=== PATIENT | male | born 1970 | race Caucasian/White ===

== ENCOUNTER 2016-04-06 19:34 | Emergency (ER) | payer OTHER ==
[~2016-04-06] VITALS: Ht 175.3 cm; Wt 81.6 kg
--- OUTSIDE RECORDS SUMMARY | 2016-04-06 19:41 | XMS REPORT | Continuity of Care Document ---
Demographics Preferred Language Unknown Marital Status Unknown [employer] Affiliation Unknown Race Unknown Ethnic Group Unknown Author Author [facility] Organization [facility] Address Unknown Phone Unavailable Allergies Medications Problems Procedures Results Encounters ACCT No. Visit Date/Time Discharge Status Pt. Type Provider Facility Loc./Unit Complaint [id number] 03/13/2014 15:44:00 2014 23:59:59 [facility] Outpatient AKILA MAO APRN [facility] QUICK
[2016-04-06] MEDS ORDERED: ORPHENADRINE 60 MG/2 ML (NORFLEX) AMP ONE (20:27)
[2016-04-06] MEDS ORDERED: KETOROLAC 60 MG/2 ML VIAL IM ONE ×2 (20:27→20:30)
[2016-04-06] MEDS ORDERED: ORPHENADRINE 60 MG/2 ML (NORFLEX) AMP IM ONE (20:30)
--- NOTE | 2016-04-06 20:30 | ED Back Pain ---
General Chief Complaint: Back Problems Stated Complaint: LOWER BACK Nursing Triage Note: to ER with complaints of lower back pain after sitting in bleachers all day watching wrestling. Patient reports that his back was sore after that and they went and ate in [place] and then went and had a massage at the mall, and patient reports that his pain was significantly worse after the massage. Nursing Sepsis Screen: No Definite Risk Source of Information: Patient Exam Limitations: No Limitations History of Present Illness Time Seen by Provider: 20:27 Initial Comments To ER with midline low back pain that began earlier today. He was at his cousin 's wrestling tournament in [facility] sitting on the bench all day. They got up and went to eat in [place]. After they set up from eating dinner he noticed some midline back pain that did not radiate. They then went to the mall and the back pain continued so he stopped by a massage kiosk and had a massage. He states some/felt good but ultimately did not help with his back pain. Still, the back pain does not radiate but is persistent in the midline low back. He denies any falls injuries or any other known cause. He denies fevers or chills or history of cancer. Pain does not radiate and there is no loss of bowel or bladder control or loss of sensation of the genitals. He has 1 episode of back pain in the remote past about 7 months ago for which she saw Dr. alcantar, got a few shots and ultimately felt better 1-2 days later. Location: Lumbar Spine, Paraspinous Muscles Timing/Duration: 4-6 Hours Severity: Moderate Pain/Injury Location: Back Method of Injury: Unknown Allergies and Home Medications Allergies Coded Allergies: No Known Drug Allergies (Unverified , 04/06/16) Constitutional: see HPINo chills, No fever EENTM: see HPI Respiratory: no symptoms reported Cardiovascular: no symptoms reported Genitourinary: no symptoms reported Musculoskeletal: see HPI back pain Skin: no symptoms reported Psychiatric/Neurological: No Symptoms Reported Past Dxqhnwz-Kknuca-Rfdvzu Hx Patient Social History Alcohol Use: Occasionally Uses Recreational Drug Use: No Smoking Status: Never a Smoker 2nd Hand Smoke Exposure: No Recent Foreign Travel: No Contact w/Someone Who Travel: No Recent Infectious Disease Expo: No Recent Hopitalizations: No Immunizations Up To Date Tetanus Booster (TDap): Unknown Seasonal Allergies Seasonal Allergies: No Surgeries HX Surgeries: Yes Surgeries: Orthopedic Respiratory Hx Respiratory Disorders: No Cardiovascular Hx Cardiac Disorders: No Neurological Hx Neurological Disorders: No Reproductive System Hx Reproductive Disorders: No Genitourinary Hx Genitourinary Disorders: No Gastrointestinal Hx Gastrointestinal Disorders: No Musculoskeletal Hx Musculoskeletal Disorders: No Endocrine Hx Endocrine Disorders: No HEENT HX ENT Disorders: No Cancer Hx Cancer: No Psychosocial Hx Psychiatric Problems: No Integumentary HX Skin/Integumentary Disorder: No Blood Transfusions Hx Blood Disorders: No Physical Exam Vital Signs Vital Sign - Last 12Hours 04/06/16 20:18 Temp 98.7 Pulse 72 Resp 18 B/P 157/95 Pulse Ox 100 O2 Delivery Room Air Capillary Refill : Less Than 3 Seconds General Appearance: No Apparent Distress WD/WN HEENT: PERRL/EOMI TMs Normal Neck: Full Range of Motion Normal Inspection Respiratory: No Accessory Muscle Use No Respiratory Distress Gastrointestinal: Normal Bowel Sounds Non Tender Soft Back: Normal Inspection Muscle SpasmNo Vertebral Tenderness Extremity: Normal Capillary Refill Normal Inspection Neurologic/Psychiatric: Alert Oriented x3 No Motor/Sensory Deficits Skin: Normal Color Warm/Dry Progress/Results/Core Measures Results/Orders My Orders Orders-NAVARRO WHEATLEY APRN Orphenadrine Injection (Norflex Injectio (04/06/16 20:30) Ketorolac Injection (Toradol Injection) (04/06/16 20:30) Ketorolac Injection (Toradol Injection) (04/06/16 20:27) Orphenadrine Injection (Norflex Injectio (04/06/16 20:27) Medications Given in ED Current Medications Medications Dose Ordered Sig/Jefry Route Start Time Stop Time Status Last Admin Dose Admin Ketorolac Tromethamine 60 mg ONCE ONCE IM 04/06/16 20:30 04/06/16 20:31 DC 04/06/16 20:40 60 MG Orphenadrine Citrate 60 mg ONCE ONCE IM 04/06/16 20:30 04/06/16 20:31 DC 04/06/16 20:39 60 MG Vital Signs/I&O Vital Sign - Last 12Hours 04/06/16 04/06/16 04/06/16 04/06/16 20:18 20:39 20:40 20:40 Temp 98.7 98.7 98.7 98.7 Pulse 72 Resp 18 B/P 157/95 Pulse Ox 100 O2 Delivery Room Air Blood Pressure Mean: 115 Departure Communication Progress Notes 2116-minimal improvement in pain after Toradol and Norflex. 8 mg of intramuscular morphine ordered. Impression Impression: Primary Impression: Acute low back pain Qualified Code: M54.5 - Low back pain Disposition: HOME, SELF-CARE Condition: Stable Departure-Patient Inst. Decision time for Depature: 20:29 Referrals: NO,LOCAL PHYSICIAN (PCP) Primary Care Physician Patient Instructions: Lumbar Muscle Strain (DC), Low Back Pain (DC) Add. Discharge Instructions: 1. Return to ER for any worsening 2. Follow-up your doctor next week 3. All discharge instructions reviewed with patient and/or family. Voiced understanding. Scripts Oxycodone HCl/Acetaminophen (Percocet 5-325 mg Tablet)1 Each Tablet1 Each PO Q6H PRN SEVERE PAIN #10 TAB Prov:NAVARRO WHEATLEY APRN 04/06/16 Prednisone 20 Mg Tab40 Mg PO DAILY #8 TAB Prov:NAVARRO WHEATLEY APRN 04/06/16 NAVARRO WHEATLEY APRN Apr 06, 2016 20:30
[2016-04-06] MEDS ORDERED: OXYC-197 PO (21:18)
[2016-04-06] MEDS ORDERED: PRD20T PO (21:18)
[2016-04-06] MEDS ORDERED: morphine INJ 10 MG/ML 1ML (SYR OR VIAL) IM ONE (21:30)
[2016-04-06] MEDS ORDERED: RX-TRAMADOL 50 MG (ULTRAM) TAB PPK#4 PO STA (21:35)
[2016-04-06 21:52] VITALS: BP 157/95
[2016-04-07] MEDS ORDERED: CYCL10TA9 PO (16:07)
== END 2016-04-06 21:52 | disposition home or self-care (01) ==
LOC: EDUNIT# 19:34 → ER 19:38
DX: M54.5 Low back pain (principal)
CPT/HCPCS: 96372; 99281

== ENCOUNTER 2016-04-07 13:52 | Emergency (ER) | payer OTHER ==
[~2016-04-07] VITALS: Ht 175.3 cm; Wt 81.6 kg
[~2016-04-07 13:52] MED LIST: OXYC-197 PO; PRD20T PO
--- OUTSIDE RECORDS SUMMARY | 2016-04-07 13:58 | XMS REPORT | Continuity of Care Document ---
Author Author [facility] Organization [facility] Address Unknown Phone Unavailable Care Team Providers Care Figure Clerk Name Role Phone NO, LOCAL PHYSICIAN PCP Unavailable Insurance Providers Payer Name Policy Number Subscriber Name Relationship Unknown Advance Directives Directive Response Recorded Date/Time Advance Directives No 04/06/16 8:18pm Resuscitation Status Full Code 04/06/16 8:18pm Chief Complaint and Reason for Visit Chief Complaint Back Problems Reason for Visit Acute low back pain Problems Active Problems Medical Problem Onset Date Status Acute low back pain Unknown Acute Medications Current Home Medications Medication Dose Units Route Directions Days/Qty Instructions Start Date Prednisone 20 Mg 40 Mg Oral Daily 8 04/06/16 Oxycodone Hcl/Acetaminophen 1 Each 1 Each Oral Every 6 Hours as needed for Severe Pain 10 04/06/16 Social History Social History Problem Response Recorded Date/Time Alcohol Use Occasionally Uses 04/06/2016 8:18pm Recreational Drug Use No 04/06/2016 8:18pm Recent Foreign Travel No 04/06/2016 8:18pm Recent Infectious Disease Exposure No 04/06/2016 8:18pm Hospitalization with Isolation Denies 04/06/2016 8:18pm Smoking Status Never a Smoker 04/06/2016 8:18pm Recent Hopitalizations No 04/06/2016 8:18pm Hospitalization with Isolation Denies 04/06/2016 8:18pm Query Response Start Date Stop Date Smoking Status Never a Smoker Hospital Discharge Instructions No hospital discharge instructions. Plan of Care Discharge Date 04/06/16 9:52pm Disposition 01 HOME, SELF-CARE Condition at Discharge Stable Instructions/Education Provided Low Back Pain (DC) Lumbar Muscle Strain (DC) Prescriptions See Medication Section Referrals NO,LOCAL PHYSICIAN - Primary Care Physician Additional Instructions/Education 1. Return to ER for any worsening 2. Follow-up your doctor next week 3. All discharge instructions reviewed with patient and/or family. Voiced understanding. Functional Status No functional status results. Allergies, Adverse Reactions, Alerts No known allergies. Immunizations No immunization records. Vital Signs Acute Vital Signs Vital Response Date/Time Temperature (Fahrenheit) 98.7 degrees F (97.6 - 99.5) 04/06/2016 9:25pm Temperature (Calculated Celsius) 37.31241 degrees C (36.4 - 37.5) 04/06/2016 9:25pm Temperature Source Temporal 04/06/2016 9:25pm Pulse Rate (adult) 72 bpm (60 - 90) 04/06/2016 8:18pm Respiratory Rate 18 bpm (12 - 24) 04/06/2016 8:18pm O2 Sat by Pulse Oximetry 100 % (88 - 100) 04/06/2016 8:18pm Blood Pressure 157/95 mm Hg 04/06/2016 8:18pm Blood Pressure Mean 115 mm Hg 04/06/2016 8:18pm Pain Numeric Pain Scale 10-Worst Possible Pain 04/06/2016 9:25pm Height (Feet) 5 feet 04/06/2016 8:18pm Height (Inches) 9 inches 04/06/2016 8:18pm Height (Calculated Centimeters) 175.686696 cm 04/06/2016 8:18pm Weight (Pounds) 180 pounds 04/06/2016 8:18pm Weight (Calculated Kilograms) 81.662571 kilograms 04/06/2016 8:18pm Capillary Refill Capillary Refill Less Than 3 Seconds 04/06/2016 8:18pm Height 5 ft 9 in Weight 180 lb Body Mass Index 26.6 kg/m^2 Results No known relevant diagnostic tests, laboratory data and/or discharge summary. Procedures No known history of procedures. Encounters Encounter Location Arrival/Admit Date Discharge/Depart Date Attending Provider Departed Emergency Room [facility] 04/06/16 7:38pm 04/06 9:52pm NAVARRO WHEATLEY APRN Recent Diagnosis
--- NOTE | 2016-04-07 14:34 | ED Back Pain ---
General Chief Complaint: Back Problems Stated Complaint: LOWER BACK PAIN Nursing Triage Note: PT STATES CONTINUED BACK PAIN, WAS SEEN HERE YESTERDAY FOR THE SAME. HAD A SHOT IN HIS BACK ABOUT 6-7 MONTHS AGO FOR PAIN. Nursing Sepsis Screen: No Definite Risk Source of Information: Patient, Spouse Exam Limitations: No Limitations History of Present Illness Time Seen by Provider: 14:33 Initial Comments 45-year-old male patient presents to the emergency department complaints of low back pain. Patient was seen in the emergency department yesterday by Scot Thakur APRN for similar complaints. Patient states he is feeling much better last night. 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 On the way to get his prescriptions he decided he was stopping at the emergency department instead for an injection of pain medicine. Denies bowel or bladder incontinence. Patient does complain of right flank pain radiating into the right testicle. Location: Lumbar Spine Timing/Duration: 1-2 Days Pain/Injury Location: Back Radiation: Other (right testicle) Method of Injury: Unknown (denies known injury) Modifying Factors: Worse With Immobilization, Improves With Movement, Improves With Other (improved with standing) Associated Symptoms: muscle spasmsNo fever, No weakness, No numbness in legs/ feet, No tingling in legs/feet, No sensory/motor loss, lower back painNo loss of bladder control, No loss of bowel control Allergies and Home Medications Allergies Coded Allergies: No Known Drug Allergies (Unverified , 04/06/16) Home Medications Cyclobenzaprine HCl 10 Mg Tablet #14 10 MG PO Q8H PRN PRN SPASMS Prescribed by: DIMITRIS NATION on 04/07/16 1607 Oxycodone HCl/Acetaminophen 1 Each Tablet #10 1 EACH PO Q6H PRN PRN SEVERE PAIN Prescribed by: SCOT THAKUR on 04/06/162117 Prednisone 20 Mg Tab #8 40 MG PO DAILY Prescribed by: SCOT THAKUR on 04/06/162117 Constitutional: No chills, No diaphoresis, No fever, No malaise EENTM: no symptoms reported Respiratory: no symptoms reported Cardiovascular: no symptoms reported Gastrointestinal: No abdominal pain, No constipation, No diarrhea, No nausea, No vomiting Genitourinary: see HPINo decreased output, No dysuria, No frequency, No hematuria, pain Musculoskeletal: see HPI back pain Skin: no symptoms reported Psychiatric/Neurological: No Symptoms Reported All Other Systems Reviewed Negative Unless Noted: Yes (Negative excepted noted.) Past Sznvzlh-Orpsbg-Ofrzir Hx Patient Social History Alcohol Use: Rarely Uses Recreational Drug Use: No Smoking Status: Never a Smoker 2nd Hand Smoke Exposure: No Recent Foreign Travel: No Contact w/Someone Who Travel: No Recent Infectious Disease Expo: No Recent Hopitalizations: No Immunizations Up To Date Tetanus Booster (TDap): Unknown Seasonal Allergies Seasonal Allergies: No Surgeries HX Surgeries: Yes (RT ROTATOR CUFF) Surgeries: Orthopedic Respiratory Hx Respiratory Disorders: No Cardiovascular Hx Cardiac Disorders: No Neurological Hx Neurological Disorders: No Reproductive System Hx Reproductive Disorders: No Genitourinary Hx Genitourinary Disorders: No Gastrointestinal Hx Gastrointestinal Disorders: No Musculoskeletal Hx Musculoskeletal Disorders: No Endocrine Hx Endocrine Disorders: No HEENT HX ENT Disorders: No Cancer Hx Cancer: No Psychosocial Hx Psychiatric Problems: No Integumentary HX Skin/Integumentary Disorder: No Blood Transfusions Hx Blood Disorders: No Reviewed Nursing Assessment Reviewed/Agree w Nursing PMH: Yes Family Medical History Significant Family History: No Pertinent Family Hx Physical Exam Vital Signs Vital Sign - Last 12Hours 04/07/16 14:08 Temp 99.7 Pulse 75 Resp 22 B/P 152/93 Pulse Ox 99 O2 Delivery Room Air Capillary Refill : Less Than 3 Seconds General Appearance: No Apparent Distress WD/WN Neck: Normal Inspection Supple Cardiovascular: Regular Rate, Rhythm No Edema No Murmur Normal Peripheral Pulses Respiratory: Lungs Clear Normal Breath Sounds No Respiratory Distress Gastrointestinal: Normal Bowel Sounds No Organomegaly Non Tender SoftNo Distended Back: Normal Inspection No Vertebral TendernessNo CVA Tenderness (L), CVA Tenderness (R) Decreased Range of Motion Muscle Spasm Extremity: Normal Capillary Refill Normal Inspection Normal Range of Motion Non Tender No Pedal Edema Neurologic/Psychiatric: Alert Oriented x3 No Motor/Sensory Deficits Normal Mood/Affect Skin: Normal Color Warm/Dry Progress/Results/Core Measures Results/Orders Lab Results Laboratory Tests Test 04/07/16 14:55 Range/Units Urine Bacteria NONE /HPF Urine Bilirubin NEGATIVE NEGATIVE Urine Casts NONE /LPF Urine Clarity CLEAR Urine Color YELLOW Urine Crystals NONE /LPF Urine Culture Indicated NO Urine Glucose (UA) NEGATIVE NEGATIVE Urine Ketones NEGATIVE NEGATIVE Urine Leukocyte Esterase NEGATIVE NEGATIVE Urine Mucus NEGATIVE /LPF Urine Nitrite NEGATIVE NEGATIVE Urine Protein NEGATIVE NEGATIVE Urine RBC NONE /HPF Urine RBC (Auto) NEGATIVE NEGATIVE Urine Specific Nelson 1.020 1.016-1.022 Urine Squamous Epithelial Cells RARE /HPF Urine Urobilinogen NORMAL NORMAL MG/DL Urine WBC NONE /HPF Urine pH 6 5-9 My Orders Orders-DIMITRIS NATION Ua Culture If Indicated (04/07/16 14:47) Morphine Injection (Morphine Injection (04/07/16 14:47) Orphenadrine Injection (Norflex Injectio (04/07/16 14:47) Ct Abd/Pelvis Wo(Kidney Stone) (04/07/16 14:47) Ct Lumbar Spine Wo (04/07/16 14:47) Vital Signs/I&O Vital Sign - Last 12Hours 04/07/16 04/07/16 14:08 16:19 Temp 99.7 97.1 Pulse 75 75 Resp 22 22 B/P 152/93 Pulse Ox 99 99 O2 Delivery Room Air Blood Pressure Mean: 112 Diagnostic Imaging Diagonstic Imaging: CT Plain Films/CT/US/NM/MRI: other (lumbar spine) Comments IMPRESSION: 1. There is no evidence for an acute bony abnormality. 2. There is trefoil stenosis at L4-L5 and there is narrowing of the neuroforamen bilaterally at this level, particularly on the right. There is also mild trefoil stenosis at L3-L4 with mild narrowing of the neuroforamen bilaterally. 3. The remainder of the lumbar spine is unremarkable for spinal stenosis or nerve root encroachment. Dictated by: Dictated on workstation # [id number] Diagonstic Imaging: CT Plain Films/CT/US/NM/MRI: abdomen, pelvis Comments FINDINGS: The lung bases are clear. The liver, gallbladder, pancreas, spleen and adrenal glands appear unremarkable. There is a tiny nonobstructive calculus in the mid left kidney. The kidneys, ureters and bladder otherwise appear unremarkable. The appendix appears normal. There is no evidence of diverticulitis. There is no free fluid or adenopathy. The abdominal aorta appears normal in caliber. No acute osseous abnormality is suspected. IMPRESSION : 1. Nonobstructive left nephrolithiasis. 2. No additional significant abnormality is demonstrated. Dictated by: Dictated on workstation # [id number] Reviewed: Reviewed by Me (radiology report reviewed by me) Departure Communication Progress Notes Diagnostic and laboratory findings discussed with the patient. Patient reports symptoms are much improved with IM morphine and Norflex. Patient is ambulating without difficulty. Plan for discharge to home. All return precautions were discussed with the patient as described in the discharge instructions of this report. Patient voices understanding and agrees with the treatment plan. Patient case discussed with Dr. Trevino, he agrees with the plan of care. Impression Impression: Primary Impression: Spinal stenosis, lumbar Disposition: HOME, SELF-CARE Condition: Improved Departure-Patient Inst. Decision time for Depature: 16:02 Referrals: OBI MOYER BRIAN J MD NO,LOCAL PHYSICIAN (PCP) Primary Care Physician Patient Instructions: Spinal Stenosis (DC), Spinal Stenosis Strengthening Exercises, Spinal Stenosis Stretching Exercises Add. Discharge Instructions: All discharge instructions reviewed with patient and/or family. Voiced understanding. quality assurance group leader medications as prescribed by Scot Thakur APRN. medications as instructed. Ibuprofen 800 mg by mouth every 8 hours as needed for pain. No lifting, pushing, pulling, twisting, bending, climbing 7 days. Heating pads or packs as needed for pain. Follow-up with a family practitioner for recheck. Return to the emergency department for worsened pain, radiating pain, numbness, weakness, bowel incontinence, bladder incontinence, or any other concerns. 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
[2016-04-07] MEDS ORDERED: morphine INJ 10 MG/ML 1ML (SYR OR VIAL) IM STA (14:47)
[2016-04-07] MEDS ORDERED: ORPHENADRINE 60 MG/2 ML (NORFLEX) AMP IM STA (14:47)
[2016-04-07 15:01] LABS: BILIRUBIN,URINE NEGATIVE (NEGATIVE); KETONES,URINE NEGATIVE (NEGATIVE); LEUKOCYTE ESTERASE ,URINE NEGATIVE (NEGATIVE); NITRITE,URINE NEGATIVE (NEGATIVE); PH,URINE 6 (5-9); PROTEIN,URINE NEGATIVE (NEGATIVE); UROBILINOGEN,URINE NORMAL (NORMAL)
[2016-04-07 15:08] LABS: SQUAMOUS EPITHELIAL CELL,UR RARE /HPF
--- NOTE | 2016-04-07 15:36 | Diagnostic Imaging Report ---
PROCEDURE: CT urinary tract, rule out kidney stone. TECHNIQUE: Multiple contiguous axial images were obtained through the abdomen and pelvis without the use of intravenous contrast. INDICATION: Low back pain. COMPARISON: None. FINDINGS: The lung bases are clear. The liver, gallbladder, pancreas, spleen and adrenal glands appear unremarkable. There is a tiny nonobstructive calculus in the mid left kidney. The kidneys, ureters and bladder otherwise appear unremarkable. The appendix appears normal. There is no evidence of diverticulitis. There is no free fluid or adenopathy. The abdominal aorta appears normal in caliber. No acute osseous abnormality is suspected. IMPRESSION: 1. Nonobstructive left nephrolithiasis. 2. No additional significant abnormality is demonstrated. Dictated by: Dictated on workstation # [id number]
--- NOTE | 2016-04-07 15:56 | Diagnostic Imaging Report ---
PROCEDURE: CT lumbar spine without contrast. TECHNIQUE: Multiple contiguous axial images were obtained through the lumbar spine without the use of intravenous contrast. Sagittal and coronal reformations were then performed. INDICATION: Back pain. There are no prior studies available for comparison. FINDINGS: The reconstructed parasagittal images show the vertebral body heights and alignment to be generally within normal limits. There is mild narrowing of the disc spaces at L3-L4 and L4-L5. There does appear to be trefoil stenosis at the L4-L5 level and there is narrowing of the neuroforamen bilaterally, particularly on the right. There is mild trefoil stenosis at L3-L4. There is mild narrowing of the neuroforamen bilaterally at this level as well. The remainder of the lumbar spine is unremarkable for spinal stenosis or nerve root encroachment. There is no fracture or acute bony abnormality identified. There is no sign of a paraspinal mass. IMPRESSION: 1. There is no evidence for an acute bony abnormality. 2. There is trefoil stenosis at L4-L5 and there is narrowing of the neuroforamen bilaterally at this level, particularly on the right. There is also mild trefoil stenosis at L3-L4 with mild narrowing of the neuroforamen bilaterally. 3. The remainder of the lumbar spine is unremarkable for spinal stenosis or nerve root encroachment. Dictated by: Dictated on workstation # [id number]
[2016-04-07] MEDS ORDERED: CYCL10TA9 PO (16:07)
[2016-04-07 16:19] VITALS: BP 132/84
== END 2016-04-07 16:18 | disposition home or self-care (01) ==
LOC: EDUNIT# 13:52 → ER 13:55
DX: M48.06 Spinal stenosis, lumbar region (principal); N20.0 Calculus of kidney
CPT/HCPCS: 72131; 74176; 81000; 96372; 99282

== ENCOUNTER 2022-10-07 15:27 | Emergency (ER) | payer BC ==
[~2022-10-07] VITALS: Ht 172 cm; Wt 131.0 kg
[~2022-10-07 15:27] MED LIST changes: +CYCL10TA25 PO; -OXYC-197 PO; +OXYC1TAB87 PO
[2022-10-07 16:01] LABS: BILIRUBIN,URINE NEGATIVE (NEGATIVE); CLARITY,URINE CLEAR; COLOR,URINE YELLOW; GLUCOSE, URINE (UA) NEGATIVE (NEGATIVE); KETONES,URINE NEGATIVE (NEGATIVE); LEUKOCYTE ESTERASE ,URINE NEGATIVE (NEGATIVE); NITRITE,URINE NEGATIVE (NEGATIVE); PH,URINE 6.5 (5-9); PROTEIN,URINE NEGATIVE (NEGATIVE)
[2022-10-07 16:02] LABS: BACTERIA,URINE NEGATIVE /HPF; SQUAMOUS EPITHELIAL CELL,UR 0-2 /HPF
[2022-10-07] MEDS ORDERED: ASPIRIN 81 MG CHEWABLE TABLET PO ONE (16:15)
[2022-10-07 16:22] LABS: BASOPHILS % (AUTO) 0 % (0-10); EOSINOPHILS # (AUTO) 0.1 10^3/uL (0.0-0.3); EOSINOPHILS % (AUTO) 1 % (0-10); HEMATOCRIT 38 % (40-54); HEMOGLOBIN 11.5 g/dL (13.3-17.7); LYMPHOCYTES # (AUTO) 1.5 10^3/uL (1.0-4.0); LYMPHOCYTES % (AUTO) 10 % (12-44); MEAN CORPUSCULAR HEMOGLOBIN 27 pg (25-34); MEAN CORPUSCULAR HGB CONC 30 g/dL (32-36); MEAN CORPUSCULAR VOLUME 88 fL (80-99); MONOCYTES # (AUTO) 1.5 10^3/uL (0.0-1.0); MONOCYTES % (AUTO) 11 % (0-12); NEUTROPHILS # (AUTO) 10.8 10^3/uL (1.8-7.8); NEUTROPHILS % (AUTO) 78 % (42-75); PLATELET COUNT 309 10^3/uL (130-400); WHITE BLOOD COUNT 13.9 10^3/uL (4.3-11.0)
[2022-10-07 16:32] LABS: ALBUMIN 3.3 GM/DL (3.2-4.5)
[2022-10-07 16:33] LABS: CHLORIDE 101 MMOL/L (98-107); POTASSIUM 3.8 MMOL/L (3.6-5.0); SODIUM 133 MMOL/L (135-145)
[2022-10-07 16:34] LABS: CALCIUM 8.4 MG/DL (8.5-10.1)
[2022-10-07 16:35] LABS: GLUCOSE 131 MG/DL (70-105); TOTAL PROTEIN 6.3 GM/DL (6.4-8.2)
[2022-10-07 16:36] LABS: CARBON DIOXIDE 22 MMOL/L (21-32)
[2022-10-07 16:38] LABS: ALKALINE PHOSPHATASE 77 U/L (40-136)
[2022-10-07 16:39] LABS: GFR ESTIMATED 108
[2022-10-07 16:40] LABS: BUN/CREATININE RATIO 15
[2022-10-07 16:42] LABS: ALANINE AMINOTRANSFERASE 30 U/L (0-55)
--- NOTE | 2022-10-07 16:48 | Diagnostic Imaging Report ---
INDICATION: Abdominal pain, dysuria. EXAMINATION: PA chest, supine and upright abdominal images are obtained. FINDINGS: There is some atelectasis at the lung bases. There is scoliosis of the lumbar spine convex to the right. Bowel gas pattern is normal. There are no pathologic masses or calcifications seen. IMPRESSION: No acute abnormalities in the abdomen. Dictated by: Dictated on workstation # [id number]
--- NOTE | 2022-10-07 16:52 | ED GU-Female ---
General Chief Complaint: - Reproductive Stated Complaint: UNABLE TO URINATE Nursing Triage Note: PT AMB TO RM 8 PT CO OF PAIN 8/10 UPON URINATION. STARTED A COUPLE DAYS AGO. PT STATES DR HAS INCREASED PREDNISONE AND IS WONDERING IF THIS WOULD CAUSE PROBLEM. PT STATES SOMETIME HE DRIBBLES. BLADDER SCANNER USED AND PT HAS APPROX 195CC OF URINE IN BLADDER AFTER VOIDING HAS ONLY 6CC LEFT IN BLADDER. Source: patient Exam Limitations: no limitations History of Present Illness Date Seen by Provider: Oct 07, 2022 Time Seen by Provider: 15:43 Initial Comments Here with report of difficulty with urination over the past couple of days after starting high-dose prednisone taper for rheumatoid arthritis. States that he has to urinate a lot and then cannot very much and then only dribbles but still feels the urge to urinate. He is also complaining of constipation and then reports upper abdominal pressure and low chest pressure. Patient is obese and denies diabetes or other medical problems. Does have family history of melanoma and lymphoma in both his father and brother. Denies fever or chills. Denies chest pain or breathing problems otherwise other than the chest pressure described above. Denies upper respiratory symptoms. Timing/Duration: other (Few days ago) Severity/Quality: mild, burning Location: urethral Radiation: RLQ, LLQ, suprapubic Modifying Factors: Worsens With Urinating Associated Symptoms: abdominal pain, dysuria; No fever/chills, No nausea/vomiting; urinary frequency, other (low Chest pressure anterior) Allergies and Home Medications Allergies Coded Allergies: No Known Drug Allergies (Unverified , 04/06/16) Patient Home Medication List Home Medication List Reviewed: Yes Cyclobenzaprine HCl (Cyclobenzaprine HCl) 10 Mg Tablet, 10 MG PO Q8H PRN for SPASMS Prescribed by: DIMITRIS NATION on 04/07/16 1607 Oxycodone HCl/Acetaminophen (Percocet 5-325 mg Tablet) 1 Each Tablet, 1 EACH PO Q6H PRN for SEVERE PAIN Prescribed by: NAVARRO WHEATLEY on 04/06/162117 Prednisone (Prednisone) 20 Mg Tab, 40 MG PO DAILY Prescribed by: NAVARRO WHEATLEY on 04/06/162117 Review of Systems Review of Systems Constitutional: see HPI; No chills, No fever, No weakness EENTM: No nose congestion, No throat pain Respiratory: No cough, No short of breath Cardiovascular: chest pain; No edema Gastrointestinal: abdominal pain, constipation; No nausea, No vomiting Genitourinary: see HPI Musculoskeletal: no symptoms reported Skin: No change in color, No lesions Psychiatric/Neurological: No Symptoms Reported Past Rdmlmfa-Oefclc-Clwloa Hx Patient Social History Tobacco Use?: No Substance use?: No Alcohol Use?: Yes Alcohol Frequency: Couple times a week Pt feels they are or have been: No Immunizations Up To Date Tetanus Booster (TDap): Unknown First/Initial COVID19 Vaccinat: YES Second COVID19 Vaccination Bautista: YES Seasonal Allergies Seasonal Allergies: No Past Medical History Surgery/Hospitalization HX: RA Surgeries: Yes Orthopedic Respiratory: No Cardiac: No Neurological: No Reproductive Disorders: No Endocrine: No Family Medical History Reviewed Nursing Family Hx Cancer Physical Exam Vital Signs Vital Signs - First Documented 10/07/22 15:35 Temp 36.7 Pulse 110 Resp 18 B/P (MAP) 153/110 (124) Pulse Ox 97 Capillary Refill : Less Than 3 Seconds Height, Weight, BMI Height: 5'9" Weight: 180lbs. oz. [id number]; 44.00 BMI Method:Stated General Appearance: WD/WN, no apparent distress, obese HEENT: PERRL/EOMI, pharynx normal Neck: full range of motion, supple Cardiovascular: no murmur, tachycardia Respiratory: lungs clear, normal breath sounds Gastrointestinal: soft, tenderness (superpubic) Extremities: non-tender, normal inspection Neurologic/Psychiatric: alert, normal mood/affect Skin: normal color, warm/dry Progress/Results/Core Measures Suspected Sepsis SIRS Temperature: Pulse: 110 Respiratory Rate: 18 Laboratory Tests 10/07/22 16:10: White Blood Count 13.9H Blood Pressure 153 /110 Mean: 124 Laboratory Tests 10/07/22 16:10: Creatinine 0.80, Platelet Count 309, Total Bilirubin 1.0 Results/Orders Lab Results Laboratory Tests Test 10/07/22 15:40 10/07/22 16:10 Range/Units Urine Color YELLOW Urine Clarity CLEAR Urine pH 6.5 5-9 Urine Specific [place] 1.010 L 1.016-1.022 Urine Protein NEGATIVE NEGATIVE Urine Glucose (UA) NEGATIVE NEGATIVE Urine Ketones NEGATIVE NEGATIVE Urine Nitrite NEGATIVE NEGATIVE Urine Bilirubin NEGATIVE NEGATIVE Urine Urobilinogen 0.2 < = 1.0 MG/DL Urine Leukocyte Esterase NEGATIVE NEGATIVE Urine RBC (Auto) NEGATIVE NEGATIVE Urine RBC NONE /HPF Urine WBC NONE /HPF Urine Squamous Epithelial Cells 0-2 /HPF Urine Crystals NONE /LPF Urine Bacteria NEGATIVE /HPF Urine Casts NONE /LPF Urine Mucus NEGATIVE /LPF Urine Culture Indicated NO White Blood Count 13.9 H 4.3-11.0 10^3/uL Red Blood Count 4.33 4.30-5.52 10^6/uL Hemoglobin 11.5 L 13.3-17.7 g/dL Hematocrit 38 L 40-54 % Mean Corpuscular Volume 88 80-99 fL Mean Corpuscular Hemoglobin 27 25-34 pg Mean Corpuscular Hemoglobin Concent 30 L 32-36 g/dL Red Cell Distribution Width 13.8 10.0-14.5 % Platelet Count 309 130-400 10^3/uL Mean Platelet Volume 10.0 9.0-12.2 fL Immature Granulocyte % (Auto) 0 % Neutrophils (%) (Auto) 78 H 42-75 % Lymphocytes (%) (Auto) 10 L 12-44 % Monocytes (%) (Auto) 11 0-12 % Eosinophils (%) (Auto) 1 0-10 % Basophils (%) (Auto) 0 0-10 % Neutrophils # (Auto) 10.8 H 1.8-7.8 10^3/uL Lymphocytes # (Auto) 1.5 1.0-4.0 10^3/uL Monocytes # (Auto) 1.5 H 0.0-1.0 10^3/uL Eosinophils # (Auto) 0.1 0.0-0.3 10^3/uL Basophils # (Auto) 0.0 0.0-0.1 10^3/uL Immature Granulocyte # (Auto) 0.1 0.0-0.1 10^3/uL Sodium Level 133 L 135-145 MMOL/L Potassium Level 3.8 3.6-5.0 MMOL/L Chloride Level 101 98-107 MMOL/L Carbon Dioxide Level 22 21-32 MMOL/L Anion Gap 10 5-14 MMOL/L Blood Urea Nitrogen 12 7-18 MG/DL Creatinine 0.80 0.60-1.30 MG/DL Estimat Glomerular Filtration Rate 108 BUN/Creatinine Ratio 15 Glucose Level 131 H 70-105 MG/DL Calcium Level 8.4 L 8.5-10.1 MG/DL Corrected Calcium 9.0 8.5-10.1 MG/DL Total Bilirubin 1.0 0.1-1.0 MG/DL Aspartate Amino Transf (AST/SGOT) 22 5-34 U/L Alanine Aminotransferase (ALT/SGPT) 30 0-55 U/L Alkaline Phosphatase 77 40-136 U/L Troponin I < 0.028 <0.028 NG/ML C-Reactive Protein High Sensitivity 15.59 H 0.00-0.50 MG/DL Total Protein 6.3 L 6.4-8.2 GM/DL Albumin 3.3 3.2-4.5 GM/DL My Orders Orders - SARAH JUNIOR MD Ua Culture If Indicated (10/07/22 15:43) Cbc With Automated Diff (10/07/22 16:01) Comprehensive Metabolic Panel (10/07/22 16:01) Hs C Reactive Protein (10/07/22 16:01) Troponin I Felix (10/07/22 16:01) Ed Iv/Invasive Line Start (10/07/22 16:01) Ekg Tracing (10/07/22 16:01) Monitor-Rhythm Ecg Trace Only (10/07/22 16:01) Acute Abd Series (10/07/22 16:01) Aspirin Chewable Tablet (Aspirin Chewabl (10/07/22 16:15) Ct Abdomen/Pelvis W (10/07/22 17:08) Ns Iv 1000 Ml (Ns Iv 1000 Ml) (10/07/22 17:15) Iohexol Injection (Omnipaque 350 Mg/Ml 1 (10/07/22 17:45) Ns (Ivpb) 100 Ml (Sodium Chloride 0.9% 1 (10/07/22 17:45) Medications Given in ED Current Medications Medications Dose Ordered Sig/Ejfry Route Start Time Stop Time Status Last Admin Dose Admin Aspirin 324 mg ONCE ONCE PO 10/07/22 16:15 10/07/22 16:16 DC 10/07/22 16:35 324 MG Iohexol 100 ml ONCE ONCE IV 10/07/22 17:45 10/07/22 17:46 DC 10/07/22 17:36 100 ML Sodium Chloride 100 ml ONCE ONCE IV 10/07/22 17:45 10/07/22 17:46 DC 10/07/22 17:36 80 ML Sodium Chloride 1,000 ml @ 0 mls/hr Q0M ONCE IV 10/07/22 17:15 10/07/22 17:16 DC 10/07/22 17:26 1,000 MLS/HR Vital Signs/I&O 10/07/22 15:35 Temp 36.7 Pulse 110 Resp 18 B/P (MAP) 153/110 (124) Pulse Ox 97 Capillary Refill : Less Than 3 Seconds Blood Pressure Mean: 124 Progress Note : Progress Note Seen and evaluated. Bladder scan revealed approximately 200 mL of urine. UA obtained and bladder scan postvoid was 6 mL. We will send UA. Given his complaint of chest pressure and abdominal pain we will go ahead and check basic labs and get EKG. Labs include CBC, CMP, CRP and troponin. UA ordered. Acute abdominal series including chest x-ray ordered. ASA 324 mg p.o. Monitor patient. Differential diagnosis includes UTI, dysuria secondary to medication or concentration, electrolyte abnormality, dehydration, cardiac event, bowel obstruction, bowel perforation 02/17/2004: Acute abdominal series shows no obvious free air, infiltrate on chest x-ray or bowel obstruction on my interpretation. Radiology report agrees. UA nonconcerning. CBC does show elevated white count and this is somewhat expected given his steroid use with question of left shift. CMP reveals grossly normal electrolytes with normal LFTs and normal creatinine. Troponin is negative. CRP is grossly elevated. He is now having more pain to the suprapubic/right lower quadrant area. We will go ahead and get CT abdomen and pelvis with contrast and give normal saline 1 L bolus afterwards due to this pain syndrome. This was discussed with patient and family who agree. Monitor patient. 1814: CT results reviewed and patient has cystic lesions within the liver with apparent fluid around the liver as well as concerns for mass or lesion between the bladder and colon on my interpretation. Radiology report reviewed and agrees with more findings as noted below. All of this was discussed with the patient and family. Does have strong family history of melanoma and lymphoma. I did discuss the case with Dr. Gomez who has graciously excepted seeing the patient in office tomorrow at what ever time the patient is available. His office opens at 9 AM and the patient states that he will be there at that time. Patient and family very appreciative of the close follow-up. I will send a copy of the chart to Dr. Gomez's office. Patient also has some concerns about constipation and we did discuss MiraLAX to ease that. Discharged home with return precautions. Patient and family verbalized understanding instructions and agreement with plan. ECG Initial ECG Impression Date: Oct 07, 2022 Initial ECG Impression Time: 16:19 Initial ECG Rate: 112 Initial ECG Rhythm: S.Tach Comment Sinus tachycardia with normal axis. No evidence of ST elevation RI. Interpreted by me. Diagnostic Imaging Diagonstic Imaging: Xray Plain Films/CT/US/NM/MRI: chest Comments [facility] [place], [place] NAME: ELBA GAYLE [facility] REC#: [id number] PT STATUS: REG ER : 1970 PHYSICIAN: SARAH JUNIOR MD ADMIT DATE: 10/07/22/ER Draft Date of Exam:10/07/22 ACUTE ABD SERIES INDICATION: Abdominal pain, dysuria. EXAMINATION: PA chest, supine and upright abdominal images are obtained. FINDINGS: There is some atelectasis at the lung bases. There is scoliosis of the lumbar spine convex to the right. Bowel gas pattern is normal. There are no pathologic masses or calcifications seen. IMPRESSION: No acute abnormalities in the abdomen. Dictated on workstation # [id number] Dict: 10/07/22 1645 Trans: 10/07/22 1648 [id number] Interpreted by: SARAH PHILLIPS MD Electronically signed by: Diagonstic Imaging: CT Plain Films/CT/US/NM/MRI: abdomen, pelvis Comments [facility] [place], [place] NAME: MELLISA GAYLEVA [facility] REC#: [id number] PT STATUS: REG ER : 1970 PHYSICIAN: SARAH JUNIOR MD ADMIT DATE: 10/07/22/ER Draft Date of Exam:10/07/22 CT ABDOMEN/PELVIS W EXAMINATION: CT abdomen and pelvis with intravenous contrast. TECHNIQUE: Multiple contiguous axial images were obtained through the abdomen and pelvis after the uneventful administration of intravenous contrast. All CT scans use one or more of the following dose optimizing techniques: Automated exposure control, MA and/or KvP adjustment based on patient size and exam type or iterative reconstruction. HISTORY: Right lower quadrant pain. COMPARISON: 04/07/2016. FINDINGS: Limited views of the lower thorax show mild right lower lobe atelectasis. Right hemidiaphragm is elevated. There are several suspicious liver lesions with the largest in segment VII measuring 6.5 x 3.7 cm. There are approximately 10 liver lesions. There is no biliary ductal dilation. There are stones in the gallbladder. No wall thickening or pericholecystic fluid. Pancreas is normal. Spleen is normal. Adrenal glands are normal. The kidneys are normal. There is no hydronephrosis. Urinary bladder is normal. There is mass-like wall thickening of the sigmoid colon. There is a soft tissue mass in the mesocolon measuring 4.9 x 2.7 cm. There are nodules within the omentum measuring up to 1.5 cm. A small amount of free fluid is present. No free air. No abdominal or pelvic lymphadenopathy. Aorta is normal in caliber without aneurysm. There are no suspicious osseous lesions. IMPRESSION: 1. Mass-like wall thickening of the sigmoid colon with adjacent mesocolonic soft tissue most likely representing a colon cancer. 2. There are suspicious masses throughout the liver that are new from prior exam in keeping with metastatic disease. 3. There are omental nodules and free fluid in the abdomen in keeping with peritoneal carcinomatosis. Dictated on workstation # [id number] Dict: 10/07/22 1739 Trans: 10/07/22 1745 [id number] Interpreted by: SETH HERNANDEZ MD Electronically signed by: Departure Impression Primary Impression: Mass of colon Additional Impression: Lesion of liver Disposition: 01 HOME, SELF-CARE Condition: Stable Departure-Patient Inst. Decision time for Depature: 18:25 Referrals: KYA GOMEZ DO NO,LOCAL PHYSICIAN (PCP) Primary Care Physician Patient Instructions: Colon and Rectal Cancer (DC) Add. Discharge Instructions: All discharge instructions reviewed with patient and/or family. Voiced understanding. May use MiraLAX or the generic 1 capful in juice or water twice daily for 3 days and then one half capful in juice or water twice daily thereafter to keep stools soft. You may increase or decrease dose as needed to keep stools in normal range. Follow-up with Dr. Gomez at his office tomorrow which opens at 9 AM. Let the receptionist telephone operator know that the case was discussed with him and he wants to see you and we will fit you and at what ever time you are able to get there. Return for worse pain, fever, vomiting, weakness, breathing problems or other concerns as needed. Copy Copies To 1: KYA GOMEZ TIMOTHY D MD Oct 07, 2022 16:52
[2022-10-07] MEDS ORDERED: NS IV 1000 ML 1,000 ML IV ONE (17:15)
[2022-10-07] MEDS ORDERED: NS 100 ML (IVPB) BAG IV ONE (17:45)
[2022-10-07] MEDS ORDERED: IOHEXOL 350 MG/ML 100 ML (OMNIPAQUE 350) VIAL IV ONE (17:45)
--- NOTE | 2022-10-07 17:46 | Diagnostic Imaging Report ---
EXAMINATION: CT abdomen and pelvis with intravenous contrast. TECHNIQUE: Multiple contiguous axial images were obtained through the abdomen and pelvis after the uneventful administration of intravenous contrast. All CT scans use one or more of the following dose optimizing techniques: Automated exposure control, MA and/or KvP adjustment based on patient size and exam type or iterative reconstruction. HISTORY: Right lower quadrant pain. COMPARISON: 04/07/2016. FINDINGS: Limited views of the lower thorax show mild right lower lobe atelectasis. Right hemidiaphragm is elevated. There are several suspicious liver lesions with the largest in segment VII measuring 6.5 x 3.7 cm. There are approximately 10 liver lesions. There is no biliary ductal dilation. There are stones in the gallbladder. No wall thickening or pericholecystic fluid. Pancreas is normal. Spleen is normal. Adrenal glands are normal. The kidneys are normal. There is no hydronephrosis. Urinary bladder is normal. There is mass-like wall thickening of the sigmoid colon. There is a soft tissue mass in the mesocolon measuring 4.9 x 2.7 cm. There are nodules within the omentum measuring up to 1.5 cm. A small amount of free fluid is present. No free air. No abdominal or pelvic lymphadenopathy. Aorta is normal in caliber without aneurysm. There are no suspicious osseous lesions. IMPRESSION: 1. Mass-like wall thickening of the sigmoid colon with adjacent mesocolonic soft tissue most likely representing a colon cancer. 2. There are suspicious masses throughout the liver that are new from prior exam in keeping with metastatic disease. 3. There are omental nodules and free fluid in the abdomen in keeping with peritoneal carcinomatosis. Dictated by: Dictated on workstation # [id number]
[2022-10-07 18:41] VITALS: BP 148/97
== END 2022-10-07 18:41 | disposition home or self-care (01) ==
LOC: EDUNIT# 15:27 → ER 15:29
DX: K63.89 Other specified diseases of intestine (principal); K76.9 Liver disease, unspecified; R39.198 Other difficulties with micturition; M06.9 Rheumatoid arthritis, unspecified; K59.00 Constipation, unspecified; D72.829 Elevated white blood cell count, unspecified; E66.9 Obesity, unspecified; Z80.8 Family history of malignant neoplasm of other organs or systems; Z68.41 Body mass index [BMI] 40.0-44.9, adult
CPT/HCPCS: 36415; 74022; 74177; 80053; 81000; 84484; 85025; 86141; 93005; 93041

== ENCOUNTER 2022-10-08 10:57 | Outpatient (CLI) | payer BC ==
[~2022-10-08] VITALS: Ht 175.3 cm; Wt 131.0 kg
== END 2022-10-08 12:46 | disposition home or self-care (01) ==
LOC: PREOP 10:57
PROVIDERS: ATTEND Surgery
DX: Z01.818 Encounter for other preprocedural examination (principal)

== ENCOUNTER 2022-10-09 08:45 | Day surgery (SDC) | payer BC ==
[~2022-10-09] VITALS: Ht 175.3 cm; Wt 131.0 kg
[2022-10-09] MEDS ORDERED: LACTATED RINGERS 1,000 ML 1,000 ML IV STA (08:57)
[2022-10-09 09:16] VITALS: BP 136/88
[2022-10-09] MEDS ORDERED: MIDAZOLAM INJ 2 MG/2 ML VIAL ONE (09:46)
--- NOTE | 2022-10-09 09:46 | Progress Note-Pre Operative ---
Pre-Operative Progress Note Date of Available H&P: Oct 08, 2022 Date H&P Reviewed: Oct 09, 2022 Time H&P Reviewed: 09:45 History & Physical: H&P Reviewed, Patient Examed, No changes noted Pre-Operative Diagnosis: Screening Colon, thickened sigmoid colon KYA GOMEZ DO Oct 09, 2022 09:46
[2022-10-09 10:15] VITALS: BP 130/62
--- NOTE | 2022-10-09 10:15 | Progress Note-Post Operative ---
Post-Operative Progess Note Surgeon (s)/Search And Rescue Officer (s) Surgeon KYA GOMEZ DO Search And Rescue Officer: AMBREEN Wall Pre-Operative Diagnosis Screening Colon, thickened sigmoid colon Post-Operative Diagnosis Colon mass Polyps Diverticula Int Hem Procedure & Operative Findings Date of Procedure 10/09/22 Procedure Performed/Findings Colonoscopy with snare polypectomy Colonoscopy with hot biopsy PROCEDURE NOTE: After informed consent was obtained, the patient was brought to the endoscopy suite, placed in bed in left lateral decubitus position. He was administered IV sedation by the MIX HOUSE OPERATOR who then monitored his vitals the entire time, heart rate, blood pressure and pulse ox and the scope was inserted. In the sigmoid colon a near obstructing lesion was seen. Continued to push in and found three large polyps in the descending colon; removed with hot snare polypectomy. Then pushed into the transverese colon and found another polyp; also removed with the hot snare. Finally, pushed all the way to about 130 cm and pushed into the cecum, took a picture of appendiceal orifice and noted the ileocecal valve. Then slowly withdrew the scope insufflating to look circumferentially at the light starting in the cecum, up the ascending colon. Found another polyp here and removed it with hot snare. Continued to the hepatic flexure, then down the transverse colon to the splenic flexure, into the descending colon and down into the sigmoid. At about 25 cm in the mass started, just wide enough to get scope through and it was approximately 8-10cm long. At the most distal portion I elected to do hot biopsies. Then into the rectal vault and retroflexed the scope; took a picture of the internal hemorrhoids. The patient tolerated the procedure. He was recovered in endoscopy suite. Recommended for repeat colonoscopy in 1 year. Anesthesia Type IV sedation by MIX HOUSE OPERATOR Estimated Blood Loss Estimated blood loss (mL): scant Specimens/Packing Specimens Removed desc colon x 3 transverse colon polyp asc colon polyp Sigmoid colon mass - 3 biopsies KYA GOMEZ DO Oct 09, 2022 10:15
--- NOTE | 2022-10-09 10:17 | Endoscopy Discharge Instruct ---
Endo Procedure/Findings Findings 1.: Other Findings (Sigmoid mass) 2.: Polyp 3.: Diverticulosis 4.: Internal Hemorrhoids Discharge Instructions - Activity: You might feel a little sleepy until tomorrow. This is due to the m edicine you received to relax you. Until tomorrow, you should: NOT drive a car, operate machinery or power tools. NOT drink any alcoholic beverages. NOT make any important decisions or sign importortant papers. Do not return to work until tomorrow, unless otherwise instructed. Resume previous activities tomorrow. Diet: Start by taking liquids. If you tolerate liquids, advance to solid food. 1.: Colonoscopy in 1 year Notify Physician - If you experience excessive bleeding, unusual abdominal pain, fever, or chest pain, contact your doctor immediately. Follow-Up: Other Follow up in my office in one week KYA GOMEZ DO Oct 09, 2022 10:16
[2022-10-09 10:20] VITALS: BP 127/64
[2022-10-09 10:25] VITALS: BP 126/90
[2022-10-09 10:30] VITALS: BP_SYST 130; BP_SYST 135; BP_DIAS 78; BP_DIAS 90
[2022-10-09 11:05] VITALS: BP 130/90
== END 2022-10-09 11:05 | disposition home or self-care (01) ==
LOC: ENDO 08:45
PROVIDERS: ATTEND Surgery
DX: Z12.11 Encounter for screening for malignant neoplasm of colon (principal); C18.6 Malignant neoplasm of descending colon; C18.7 Malignant neoplasm of sigmoid colon; K63.89 Other specified diseases of intestine; K57.30 Diverticulosis of large intestine without perforation or abscess without bleeding; K64.8 Other hemorrhoids; D12.2 Benign neoplasm of ascending colon; E66.01 Morbid (severe) obesity due to excess calories; R93.5 Abnormal findings on diagnostic imaging of other abdominal regions, including retroperitoneum; Z68.41 Body mass index [BMI] 40.0-44.9, adult

== ENCOUNTER 2022-10-18 05:32 | Outpatient (CLI) | payer BC ==
[~2022-10-18] VITALS: Ht 175.3 cm; Wt 125.0 kg
[2022-10-21] MEDS ORDERED: HYDR-3820 PO (09:05)
[2022-10-21] MEDS ORDERED: METR-143 PO (09:05)
[2022-10-21] MEDS ORDERED: NEOM500T12 PO (09:05)
== END 2022-10-21 12:36 | disposition home or self-care (01) ==
LOC: PREOP 05:32
PROVIDERS: ATTEND Surgery
DX: Z01.818 Encounter for other preprocedural examination (principal)

== ENCOUNTER 2022-10-24 08:22 | Inpatient (IN) | payer BC ==
[~2022-10-24] VITALS: Ht 175.3 cm; Wt 125.0 kg
[2022-10-24] VITALS (10 sets, daily range): BP systolic 98–123; BP diastolic 60–95
[~2022-10-24 08:22] MED LIST changes: +HYDR-3820 PO; +METR-143 PO; +NEOM500T12 PO
[2022-10-24] MEDS ORDERED: metroNIDAZOLE 500MG/100ML IVPB 100 ML IV ONE (08:45)
[2022-10-24] MEDS ORDERED: ceFAZolin INJECTION 2,000 MG in NS (IVPB) 50 ML 50 ML IV ONE (08:45)
[2022-10-24] MEDS: LACTATED RINGERS 1,000 ML 1,000 ML IV PRN ×3 (09:00→13:02)
--- NOTE | 2022-10-24 09:18 | Progress Note-Pre Operative ---
Pre-Operative Progress Note Date of Available H&P: Oct 17, 2022 Date H&P Reviewed: Oct 24, 2022 Time H&P Reviewed: 09:17 History & Physical: H&P Reviewed, Patient Examed, No changes noted Pre-Operative Diagnosis: Sigmoid colon cancer KYA GOMEZ DO Oct 24, 2022 09:18
[2022-10-24] MEDS ORDERED: LIDOCAINE PF 2% 5 ML VIAL ONE (09:19)
[2022-10-24] MEDS ORDERED: MIDAZOLAM INJ 2 MG/2 ML VIAL ONE (09:19)
[2022-10-24] MEDS ORDERED: dexAMETHasone INJ 10 MG/ML 1 ML VIAL ONE (09:19)
[2022-10-24] MEDS ORDERED: proPOfol INJECTION 200 MG/20 ML VIAL IV ONE (09:19)
[2022-10-24] MEDS ORDERED: ONDANSETRON INJECTION 4 MG/2 ML (SDV) ONE (09:19)
[2022-10-24] MEDS ORDERED: fentaNYL INJECTION 100 MCG/2 ML VIAL ONE (09:19)
[2022-10-24] MEDS ORDERED: ROCURONIUM 50 MG/5 ML VIAL IV ONE ×2 (09:19→12:48)
[2022-10-24] MEDS ORDERED: LIDOCAINE/EPI 1%-1:200,000 (XYLOCAINE) 30 ML VIAL ONE (09:27)
[2022-10-24] MEDS ORDERED: PHENYLEPHRINE 100 MCG/ML 10 ML (ANESTHESIA) SYR ONE (11:46)
[2022-10-24] MEDS ORDERED: NEOSTIGMINE 1 MG/1ML 10 ML VIAL ONE (13:40)
[2022-10-24] MEDS ORDERED: GLYCOPYRROLATE INJ 0.2 MG/ML 2 ML VIAL ONE (13:40)
[2022-10-24] MEDS ORDERED: HYDROmorphone INJECTION 2 MG/ML VIAL ONE (13:59)
[2022-10-24] MEDS ORDERED: HYDROmorphone INJECTION 2 MG/ML VIAL IV ONE (14:15)
[2022-10-24] MEDS ORDERED: ONDANSETRON INJECTION 4 MG/2 ML (SDV) IVP PRN ×2 (14:15→14:30)
[2022-10-24] MEDS ORDERED: morphine INJ 10 MG/ML 1ML (SYR OR VIAL) IVP ONE (14:15)
[2022-10-24] MEDS ORDERED: SEVOFLURANE (ULTANE) 15 ML INHAL SOLN ONE ×2 (14:19→14:20)
[2022-10-24] MEDS ORDERED: morphine INJ 10 MG/ML 1ML (SYR OR VIAL) IVP PRN (14:30)
--- NOTE | 2022-10-24 14:32 | Progress Note-Post Operative ---
Post-Operative Progess Note Surgeon (s)/Regional Controller (s) Surgeon KYA GOMEZ DO Regional Controller: [place] Pre-Operative Diagnosis Sigmoid colon cancer Post-Operative Diagnosis same with metastasis Procedure & Operative Findings Date of Procedure 10/24/22 Procedure Performed/Findings 1) Laparoscopic Hand Assisted Low anterior resection with Colorectal moni stomosis 2) Omentectomy 3) Partial small bowel resection 4) Appendectomy Anesthesia Type GET Estimated Blood Loss Estimated blood loss (mL): 200ml Specimens/Packing Specimens Removed Sigmoid colon, portion of small bowel, most of the omentum, appendix KYA GOMEZ DO Oct 24, 2022 14:32
[2022-10-24] MEDS ORDERED: KETOROLAC INJ 30 MG/ML VIAL ONE (14:38)
[2022-10-24] MEDS: KETOROLAC INJ 30 MG/ML VIAL IVP SCH ×2 (14:39→20:17)
[2022-10-24] MEDS ORDERED: morphine INJ 4 MG/ML 1 ML (VIAL/SYRINGE) IV PRN (16:30)
[2022-10-24] MEDS: LACTATED RINGERS 1,000 ML 1,000 ML IV SCH ×2 (16:35→22:48)
[2022-10-24] MEDS: metroNIDAZOLE 500MG/100ML IVPB 100 ML IV SCH (17:54)
[2022-10-24] MEDS: ACETAMINOPHEN 500 MG TABLET PO SCH ×2 (17:54→19:29)
[2022-10-24] MEDS ORDERED: NS (IVPB) 50 ML 0 ML ONE (19:41)
[2022-10-24] MEDS: CEFAZOLIN IV SCH (20:18)
[2022-10-24] MEDS: NS IV SCH (20:18)
--- NOTE | 2022-10-24 21:22 | OPERATIVE REPORT ---
DATE OF SERVICE: 10/24/2022 PREOPERATIVE DIAGNOSIS; Sigmoid colon cancer. POSTOPERATIVE DIAGNOSIS; Sigmoid colon cancer with metastasis. PROCEDURE; 1. Laparoscopic hand-assisted low anterior resection with colorectal anastomosis. 2. Omentectomy. 3. Partial small bowel resection. 4. Appendectomy. SURGEON; Gui Sanchez DO WALL ATTENDANT; Dr. Pappas. ANESTHESIA; General endotracheal tube. SPECIMENS; Sigmoid colon and portion of small bowel. Most of the omentum and appendix. BLOOD LOSS; Approximately 200 mL FLUIDS; Per anesthesia. POSTOPERATIVE CONDITION; Stable. INDICATIONS FOR PROCEDURE; The patient is a 51-year-old male who had been having abdominal pain, went to the ER, had a CT that showed thickened colon. Then had a colonoscopy, which showed a mass and biopsy. Unfortunately, proven to be sigmoid colon cancer, elected to have this removed. FINDINGS; The patient had metastatic disease with large nodules in the right abdominal wall and also in the omentum and had appendix and small bowel stuck to the sigmoid colon. DESCRIPTION OF PROCEDURE; After informed consent was obtained, the patient was brought to the operating room and placed on table in lithotomy position. He was then sterilely prepped and draped in normal fashion. I made a midline incision from just above the umbilicus to just below it with a #15 blade, carried down through skin into subcutaneous tissue, then deepened down to subcutaneous tissue with Bovie electrocautery down to the fascia. Fascia was then incised with Bovie electrocautery, bluntly entered the abdomen, swept a finger around then increased the incision superiorly and inferiorly to create a place for a hand port. We did go through a large portion of fat to get down to the fascia. Upon entering, I felt a firm lumps in the omentum started carefully breaking these up with some careful hand blunt dissection, I felt some in the right abdominal wall, taking these down, so I could get in. We then elected to place a wound protector and then the GelPort. We placed a 12 mm port into the GelPort and then created pneumoperitoneum with this and then placed the camera through the port and then watched as we carefully brought another 12 mm port in through the right side of the abdomen just above the umbilical height, local lidocaine, 11 blade for stab incision and the BrowsyStep system all done under direct visualization. Also did this again in the lower right quadrant, so we had two 12 in there, could see the metastatic disease in the omentum used a gently broke up some of the adhesions and then used a spatula cautery to dissect along the rectal border going down past the sacrum getting under the rectum with the Bovie electrocautery and then enabled on the opposite side to bluntly get my finger under and then able to get around the rectum. Once we had done this, placed an Endo-YUDY in through the lower 12 mm port across the colon, clamped, held for 36 and then fired. Cutting the sigmoid colon, I could feel that was below the affected portion of colon. However, there did feel like there may have been some metastatic lesions in the mesentery. Then, using the LigaSure coming across the mesentery with the LigaSure, clamping, coagulating and transecting and in a stepwise fashion, taking this up, freeing the sigmoid colon up above and past the sacrum and L5 and then up going along the left pericolic gutter with some blunt dissection with my hand as well as then using the LigaSure to free up the white line of Toldt to be able to bring this colon towards the midline going all the way up to the splenic flexure, taking this down, so that the colon came to the midline. At this point then what I felt to get enough freed up, we had placed another 5 mm port in the left side to use the LigaSure, had also switched the right lower quadrant port to a bariatric port because I did not fit. Then elected to bring up the sigmoid colon, could see while we were using the camera that there was some small intestine attached to this, brought the sigmoid colon and omentum up. The omentum had metastatic disease and that it was attached to the colon, so I came across the omentum with a LigaSure, clamping, coagulating and transecting in a stepwise fashion, taking off almost all of the omentum to come with the specimen. I found that it looked like there was 3 portion of the small bowel, but then I realized one of them was the appendix. Elected to do at [place] 2-step come across the small bowel just proximal to where it was attached to the metastatic disease in the colon, made a defect in the antimesenteric border, then placed a YUDY on either side of the small bowel, clamped together and then fired thereby creating a [id number] functional end-to-end anastomosis and then a second YUDY fired across the base to close the enteroenterotomy. This was then dropped in and then using another Endo-YUDY to come across the proximal portion of colon superior to where the cancer was clamped and fired thereby transecting the colon and then able to take this colon omentum and small bowel out and removed this en bloc and passed this off the table. I then went down, had freed up the appendix. The tip was attached to the looked like it may have had some metastatic disease, so this was cut out and came across the mesoappendix with the LigaSure, clamping, coagulating and transecting. So, the appendix was only attached to the cecum and then used the Endo-YUDY 45 mm stapler to perform an appendectomy passed this off the table, took the had come through all the mesentery, grab the proximal portion of colon, felt like I had enough to go down into the pelvis. At this point, then used a pursestring applicator and create a pursestring on the end of the anastomosis, cut the distal portion off, placed a 29 ILS anvil in there and then sutured this pursestring down. This was then dropped back into the abdomen and the port was put back in place. I went down below and was able to easily place the 25, 28 and 31 the EEA probes. They went in easily and then used the 29 ILS stapler pressed into the rectum. Dr. Pappas could feel it and see it. I then brought the trocar out. He attached the anvil to the trocar, tightened this down, held for 30 seconds, fired and held for 20 seconds and then release to full turns and the stapler, pulled out very easily two good donuts on this. These were sent to pathology as well. Dr. Pappas then placed some saline in the pelvis and held the upper portion of the colon and I insufflated with a rigid sigmoidoscopy, there were no leaks. I then allowed the air to escape. At this point, changed gown and gloves. Dr. Pappas changed gloves. We elected to then close the incision, made sure all sponge and needle count was correct. Closed the midline incision with a #1 double stranded PDS suture running from the superior portion to inferior portion tying to itself. Irrigated this incision with normal saline and then looked again from the inside and the incision was closed very nicely, could see the spot where there was some metastatic disease. We had to leave the anastomosis looked good. There was no bleeding and at this point, and then removed all ports, allowed the pneumoperitoneum to escape. closed all incisions with ariela. Area was cleaned and dried, dressings placed. The patient was then transferred to recovery room in stable condition. Sponge and needle count correct at the end of the case. Dr. Pappas assisted in this case helping to make incisions close incisions, identify anatomy, hold anatomy out away as well as help with the anastomosis. Job ID: [id number] DocumentID: [id number] Dictated Date: 10/24/2022 16:28:08 Senior Systems Architect Date: 10/24/2022 21:20:00 Dictated By: GUI SANCHEZ DO
[2022-10-25] VITALS (7 sets, daily range): BP systolic 96–133; BP diastolic 59–76
[2022-10-25] MEDS: LACTATED RINGERS 1,000 ML 1,000 ML IV SCH ×3 (00:55→19:10)
[2022-10-25] MEDS: ACETAMINOPHEN 500 MG TABLET PO SCH ×3 (00:55→16:42)
[2022-10-25] MEDS: KETOROLAC INJ 30 MG/ML VIAL IVP SCH ×4 (02:10→19:52)
[2022-10-25] MEDS: metroNIDAZOLE 500MG/100ML IVPB 100 ML IV SCH (02:11)
[2022-10-25] MEDS ORDERED: NS (IVPB) 50 ML 50 ML ONE (02:19)
[2022-10-25] MEDS ORDERED: ceFAZolin INJECTION 3,000 MG ONE (02:19)
[2022-10-25] MEDS: CEFAZOLIN IV SCH (03:46)
[2022-10-25] MEDS: NS IV SCH (03:46)
--- NOTE | 2022-10-25 08:18 | Progress Note - Surgery ---
FARIBA WILDER 10/25/22 0818: Subjective Date Seen by a Provider: Oct 25, 2022 Time Seen by a Provider: 08:05 Subjective/Events-last exam Pt presents post laparoscopic low anterior resection w/ colorectal anastamosis, omentectomy, partial small bowel resection, and appendectomy. Pt is tolerating liquids without any discomfort but is lacking in appetite. Pt has had no trouble swallowing and no N/V. Pt says he has some gassy stomach pain that is well controlled other than brief times of tension that are manageable. Review of Systems General: No Chills, No Night Sweats, No Appetite (says not much of an appetite) HEENT: No Head Aches, No Visual Changes Pulmonary: No Dyspnea (hooked up to o2), No Cough Cardiovascular: No: Chest Pain, Palpitations Gastrointestinal: Abdominal Pain (he says it feels like gassy abdominal pain that comes and goes, unsure if due to not eating); No: Nausea, Vomiting Genitourinary: No Dysuria; Other (has catheter in) Neurological: No: Weakness, Numbness Objective Exam Vital Signs Date Time Temp Pulse Resp B/P (MAP) Pulse Ox O2 Delivery O2 Flow Rate FiO2 10/25/22 07:54 36.2 80 18 113/63 (80) 96 Nasal Cannula 2.00 10/25/22 04:04 36.3 82 18 103/60 (74) 96 Nasal Cannula 2.00 10/25/22 00:53 36.4 86 18 96/63 (74) 96 Nasal Cannula 2.00 10/24/22 21:30 Nasal Cannula 2.00 10/24/22 19:42 36.8 87 18 121/75 (90) 96 Nasal Cannula 2.00 10/24/22 15:30 97 Nasal Cannula 3.00 10/24/22 15:19 36.3 103 16 103/64 (77) 97 Nasal Cannula 3.00 10/24/22 15:00 Nasal Cannula 3.00 10/24/22 14:50 36.1 11 101/74 (83) 95 Nasal Cannula 3.00 10/24/22 14:45 Nasal Cannula 3.00 10/24/22 14:40 12 100/63 (75) 94 Nasal Cannula 3.00 10/24/22 14:30 Nasal Cannula 3.00 10/24/22 14:30 14 98/60 (73) 93 Nasal Cannula 3.00 10/24/22 14:20 18 109/67 (81) 99 OxyMask 10.00 10/24/22 14:15 OxyMask 10.00 10/24/22 14:10 16 117/64 (81) 100 OxyMask 10.00 10/24/22 14:01 OxyMask 10.00 10/24/22 14:01 36.9 20 111/65 (80) 99 OxyMask 10.00 10/24/22 09:41 96 Room Air 10/24/22 09:35 36.7 90 18 123/95 (104) 96 Room Air 10/24/22 09:00 36.7 90 18 123/95 (104) 96 Room Air 10/24/22 09:00 96 Room Air I & O 10/25/22 07:00 Intake Total 3080 ml Output Total 820 ml Balance 2260 ml Capillary Refill : General Appearance: No Apparent Distress, Obese Neck: Non Tender; No JVD Respiratory: Lungs Clear, Normal Breath Sounds, No Respiratory Distress Cardiovascular: Regular Rate, Rhythm, No Murmur Peripheral Pulses: 2+ Carotid (R), 2+ Carotid (L), 2+ Dorsalis Pedis (R), 2+ Left Dors-Pedis (L), 2+ Radial Pulses (R), 2+ Radial Pulses (L) Gastrointestinal: non tender (no tenderness when pressing around the abdomen but avoiding incision sites, no tenderness in epigastric region), soft; No distended; other (incision sites dry and healing well, other than midline incision needs to be re-dressed) Extremity: No Pedal Edema Neurologic/Psychiatric: Alert, Oriented x3 Skin: Normal Color, Warm/Dry Assessment/Plan Assessment/Plan Assessment/Plan S/P anterior resection w/ colorectal anastamosis, omentectomy, partial small bowel resection, appendectomy - ambulate, continue on clear diet, pain control as needed Remove the Garrido catheter and wean off nasal cannula. GUI GOMEZ DO 10/25/22 1103: Subjective Time Seen by a Provider: 10:51 Subjective/Events-last exam Pt seen and examined, had just got finished walking in the [place]. States abd ominal pain is tolerable, he does not want to take pain meds. He was able to take in a little bit of clears, no flatus yet. Review of Systems General: No Chills, No Night Sweats Pulmonary: No Dyspnea (hooked up to o2), No Cough Cardiovascular: No: Chest Pain Gastrointestinal: Abdominal Pain (he says it feels like gassy abdominal pain that comes and goes, unsure if due to not eating); No: Nausea, Vomiting Objective Exam General Appearance: No Apparent Distress, Obese Respiratory: Lungs Clear, Normal Breath Sounds, No Accessory Muscle Use, No Respiratory Distress Cardiovascular: Regular Rate, Rhythm, No Murmur Gastrointestinal: non tender (no tenderness when pressing around the abdomen but avoiding incision sites, no tenderness in epigastric region), soft; No distended; other (port incision sites dry and healing well, midline with minimal bloody drainage) Extremity: No Pedal Edema Neurologic/Psychiatric: Alert, Oriented x3 Assessment/Plan Assessment/Plan Assessment/Plan S/P Low anterior resection w/ colorectal anastamosis, omentectomy, partial small bowel resection, appendectomy Plan to D/C garrido, ambulate, encourage clear diet and IS use, pain control as needed. Wean off O2. Supervisory-Addendum Brief Verification & Attestation Participated in pt care: history, MDM, physical Personally performed: exam, history, MDM, supervision of care Care discussed with: Medical Student Procedures: n/a Verification and Attestation of Medical Student E/M Service A medical student performed and documented this service. I then reviewed and verified all information documented by the medical student and made modifications to such information, when appropriate. I personally performed a physical exam, medical decision making and then discussed any differences between the notes and made revisions as necessary to create one note. Gui Gomez , 10/25/22 , 11:04 FARIBA WILDER Oct 25, 2022 08:18 GUI GOMEZ DO Oct 25, 2022 11:03
[2022-10-25] MEDS: PANTOPRAZOLE INJECTION 40 MG VIAL IVP SCH (09:28)
--- NOTE | 2022-10-25 13:17 | Anesthesia-General Post-Op ---
General Patient Condition Mental Status/LOC: Same as Preop Cardiovascular: Satisfactory Nausea/Vomiting: Absent Respiratory: Satisfactory Pain: Controlled Complications: Absent Post Op Complications Complications None Follow Up Care/Instructions Patient Instructions None needed. Anesthesia/Patient Condition Patient Condition Patient is doing well, no complaints, stable vital signs, no apparent adverse anesthesia problems. No complications reported per nursing. DENNIS LEONE CRNA Oct 25, 2022 13:17
[2022-10-25] MEDS: ENOXAPARIN 40 MG/0.4 ML SYRINGE SC SCH (16:42)
[2022-10-26] VITALS (7 sets, daily range): BP systolic 101–138; BP diastolic 67–82
[2022-10-26] MEDS: ACETAMINOPHEN 500 MG TABLET PO SCH ×3 (00:22→16:50)
[2022-10-26] MEDS: KETOROLAC INJ 30 MG/ML VIAL IVP SCH ×4 (02:49→19:49)
[2022-10-26] MEDS: LACTATED RINGERS 1,000 ML 1,000 ML IV SCH ×3 (02:55→19:49)
--- NOTE | 2022-10-26 08:46 | Progress Note - Surgery ---
FARIBA WILDER 10/26/22 0846: Subjective Date Seen by a Provider: Oct 26, 2022 Time Seen by a Provider: 08:40 Subjective/Events-last exam Pt says he is feeling as good as possible. Pt says the toradol and acetaminophen are managing his pain well, only feels pain when he coughs a little upon waking and eating ice chips and lemon ice due to the temperature, as well as still has the transient gassy pain. Pt otherwise says he has no trouble swallowing and no discomfort upon eating. Pt just started passing gas this morning, has not had a BM yet since the surgery but feels he is close. Pt ambulated 4x up and down the halls yesterday, says when he walks he has an awkward feeling in his abdomen but no pain. Pt ate all his ice chips and broth this morning and is going to start drinking his sprite. Pt says his appetite has increased and he is hungry. Pt is no longer on supplemental O2 and no longer has a Cruz inserted. Pt says his u rge to urinate is not there when it should be, but he is able to force himself to go upon prompting from the nurses every 8 hours, is able to ambulate there himself Review of Systems General: No Chills, No Night Sweats HEENT: No Head Aches, No Visual Changes Pulmonary: No Dyspnea; Cough (upon waking to "clear it out" and cold temperature related feeding) Cardiovascular: No: Chest Pain, Palpitations Gastrointestinal: Abdominal Pain (pt describes as gassy abdominal pain that comes and goes, says incision sites are uncomfortable but don't hurt); No: Nausea, Vomiting, Melena, Hematochezia Genitourinary: No Dysuria; Retention (says the urge is not there but he can force it out) Neurological: No: Weakness, Numbness Objective Exam Vital Signs Date Time Temp Pulse Resp B/P (MAP) Pulse Ox O2 Delivery O2 Flow Rate FiO2 10/26/22 07:45 37.0 83 18 101/68 (79) 95 Room Air 10/26/22 06:15 Room Air 0.00 10/26/22 03:15 36.7 75 18 115/67 (83) 91 Room Air 10/25/22 23:28 36.3 77 20 114/62 (79) 91 Room Air 10/25/22 19:50 Room Air 10/25/22 19:16 37.0 97 20 133/76 (95) 91 Room Air 10/25/22 15:38 36.4 97 20 125/71 (89) 93 Room Air 10/25/22 11:47 36.6 88 20 113/59 (77) 92 Nasal Cannula 3.00 10/25/22 09:07 96 Nasal Cannula 2.00 I & O 10/26/22 07:00 Intake Total 2330 ml Output Total 950 ml Balance 1380 ml Capillary Refill : General Appearance: No Apparent Distress, Obese Neck: Non Tender; No JVD Respiratory: Lungs Clear, Normal Breath Sounds, No Accessory Muscle Use, No Respiratory Distress Cardiovascular: Regular Rate, Rhythm (HR 83), No Murmur Peripheral Pulses: 2+ Carotid (R), 2+ Carotid (L), 2+ Dorsalis Pedis (R), 2+ Left Dors-Pedis (L), 2+ Radial Pulses (R), 2+ Radial Pulses (L) Gastrointestinal: non tender (no tenderness when pressing around the abdomen but avoiding incision sites, no tenderness in epigastric region), soft; No distended; other (port incision sites dry and healing well with some bruising, midline incision dressing shows minimal bloody drainage) Extremity: No Pedal Edema Neurologic/Psychiatric: Alert, Oriented x3 Skin: Normal Color, Warm/Dry Results Lab Microbiology 10/24/22 MRSA Screen - Final, Complete MRSA not isolated Assessment/Plan Assessment/Plan Assessment/Plan S/P low anterior resection w/ colorectal anastamosis, omentectomy, partial small bowel resection, appendectomy Continue ambulating, continue pain control as needed, begin introducing soft foods into diet GUI SANCHEZ DO 10/26/22 1105: Subjective Time Seen by a Provider: 10:54 Subjective/Events-last exam Pt seen and examined, states he finally had a BM and is urinating without difficulty. He is hungry and wants to eat more. Review of Systems Pulmonary: No Dyspnea; Cough (upon waking to "clear it out" and cold temperature related feeding) Cardiovascular: No: Chest Pain, Palpitations Gastrointestinal: Abdominal Pain (pt describes as gassy abdominal pain that comes and goes, says incision sites are uncomfortable but don't hurt); No: Nausea, Vomiting Objective Exam General Appearance: No Apparent Distress, Obese Respiratory: Lungs Clear, Normal Breath Sounds, No Accessory Muscle Use, No Respiratory Distress Cardiovascular: Regular Rate, Rhythm (HR 83), No Murmur Gastrointestinal: non tender (no tenderness when pressing around the abdomen but avoiding incision sites, no tenderness in epigastric region), soft; No distended; other (port incision sites dry and healing well with some bruising, midline incision dressing shows minimal bloody drainage) Neurologic/Psychiatric: Alert, Oriented x3 Assessment/Plan Assessment/Plan Assessment/Plan S/P low anterior resection w/ colorectal anastamosis, omentectomy, partial small bowel resection, appendectomy Continue ambulating, continue pain control as needed, will increase to mince&moist diet; hopefully home tomorrow. Supervisory-Addendum Brief Verification & Attestation Participated in pt care: history, MDM, physical Personally performed: exam, history, MDM, supervision of care Care discussed with: Medical Student Procedures: n/a Verification and Attestation of Medical Student E/M Service A medical student performed and documented this service. I then reviewed and verified all information documented by the medical student and made modifications to such information, when appropriate. I personally performed a physical exam, medical decision making and then discussed any differences between the notes and made revisions as necessary to create one note. Gui Sanchez , 10/26/22 , 11:04 FARIBA WILDER Oct 26, 2022 08:46 GUI SANCHEZ DO Oct 26, 2022 11:05
[2022-10-26] MEDS: PANTOPRAZOLE INJECTION 40 MG VIAL IVP SCH (08:57)
[2022-10-26] MEDS: ENOXAPARIN 40 MG/0.4 ML SYRINGE SC SCH (16:50)
[2022-10-27] MEDS: ACETAMINOPHEN 500 MG TABLET PO SCH ×2 (00:13→08:59)
[2022-10-27] MEDS: LACTATED RINGERS 1,000 ML 1,000 ML IV SCH ×2 (03:04→11:22)
[2022-10-27] MEDS: KETOROLAC INJ 30 MG/ML VIAL IVP SCH ×3 (03:04→14:37)
[2022-10-27 03:05] VITALS: BP 139/80
[2022-10-27 07:16] VITALS: BP 163/87
[2022-10-27] MEDS: PANTOPRAZOLE INJECTION 40 MG VIAL IVP SCH (09:00)
--- NOTE | 2022-10-27 09:59 | Progress Note - Surgery ---
FARIBA WILDER 10/27/22 0959: Subjective Date Seen by a Provider: Oct 27, 2022 Time Seen by a Provider: 09:55 Subjective/Events-last exam Pt is wearing a folded cold towel on his forehead. Pt reports going on a longer walk last night and then was coughing on and off throughout the night. Pt ate m ashed potatoes, gravy, macaroni, and pudding last night. Pt then woke up at around 6 this morning feeling nauseated, which has persisted until now at 10 a.m., making him feel weird and almost as if he needed to vomit but couldn't, says he feels like he's sick but not sick, although he has been feeling better since eating pudding and receiving Ondansetron at 9:00 a.m. Pt also says having a BM this morning an hour after waking up made him feel better. Pt reports no abdominal pain. Pt is still on Toradol and Acetaminophen. Pt says his gassy pain has subsided. Review of Systems General: No Chills, No Night Sweats HEENT: Head Aches (dull head ache this morning); No Visual Changes Pulmonary: No Dyspnea; Cough (after a long walk last night, persisted throughout the night) Cardiovascular: No: Chest Pain, Palpitations Gastrointestinal: Nausea (nausea since waking up this morning); No: Vomiting, Abdominal Pain Genitourinary: No Dysuria, No Hematuria; Other (pt says it feels weird to urinate, says likely due to catheter previously in) Neurological: No: Weakness, Numbness Objective Exam Vital Signs Date Time Temp Pulse Resp B/P (MAP) Pulse Ox O2 Delivery O2 Flow Rate FiO2 10/27/22 07:16 36.6 73 18 163/87 (112) 94 Room Air 10/27/22 03:05 36.4 71 18 139/80 (99) 94 Room Air 10/26/22 23:14 36.5 87 18 129/73 (91) 93 Room Air 10/26/22 20:00 Room Air 10/26/22 19:34 37.0 106 16 138/82 (100) 92 Room Air 10/26/22 16:19 37.3 91 16 136/76 (96) 94 Room Air 10/26/22 11:10 37.1 87 18 123/82 (96) 94 Room Air 0.00 0.00 10/26/22 10:54 37.2 87 18 123/82 (96) 94 Room Air I & O 10/27/22 07:00 Intake Total 3380 ml Balance 3380 ml Capillary Refill : General Appearance: Mild Distress, Obese Neck: Non Tender; No JVD Respiratory: Lungs Clear, Normal Breath Sounds, No Accessory Muscle Use, No Respiratory Distress Cardiovascular: Regular Rate, Rhythm (HR 83), No Murmur Peripheral Pulses: 2+ Carotid (R), 2+ Carotid (L), 2+ Dorsalis Pedis (R), 2+ Left Dors-Pedis (L), 2+ Radial Pulses (R), 2+ Radial Pulses (L) Gastrointestinal: non tender (no tenderness when pressing around the abdomen but avoiding incision sites, no tenderness in epigastric region), soft; No distended; other (port incision sites dry and healing well with some bruising, midline incision dressing shows a very small amount of dried blood) Extremity: No Pedal Edema Neurologic/Psychiatric: Alert, Oriented x3 Skin: Normal Color, Warm/Dry Results Lab Microbiology 10/24/22 MRSA Screen - Final, Complete MRSA not isolated Assessment/Plan Assessment/Plan Assessment/Plan S/P low anterior resection w/ colorectal anastamosis, omentectomy, partial small bowel resection, appendectomy Continue ambulating, continue pain control as needed, continue mince & moist diet. Discharge with pain medication and Zofran prescriptions. GUI SANCHEZ DO 10/27/22 1526: Subjective Time Seen by a Provider: 13:11 Subjective/Events-last exam Pt seen and examined, he was walking in the [place]. States he feels much better than he did this morning and would like to go home. Tolerating diet and having BMs. Review of Systems General: No Chills, No Night Sweats Pulmonary: No Dyspnea; Cough (after a long walk last night, persisted throughout the night) Cardiovascular: No: Chest Pain, Palpitations Gastrointestinal: Nausea (nausea since waking up this morning), Abdominal Pain; No: Vomiting Objective Exam General Appearance: Mild Distress, Obese Respiratory: Lungs Clear, Normal Breath Sounds, No Accessory Muscle Use, No Respiratory Distress Cardiovascular: Regular Rate, Rhythm (HR 83), No Murmur Gastrointestinal: non tender (no tenderness when pressing around the abdomen but avoiding incision sites, no tenderness in epigastric region), soft; No distended; other (port incision sites dry and healing well with some bruising, midline incision dressing shows a very small amount of dried blood) Assessment/Plan Assessment/Plan Assessment/Plan S/P low anterior resection w/ colorectal anastamosis, omentectomy, partial small bowel resection, appendectomy Will D/C home, continue ambulating and use IS, will Rx oral pain meds and Zofran prescriptions. Supervisory-Addendum Brief Verification & Attestation Participated in pt care: history, MDM, physical Personally performed: exam, history, MDM, supervision of care Care discussed with: Medical Student Procedures: n/a Verification and Attestation of Medical Student E/M Service A medical student performed and documented this service. I then reviewed and verified all information documented by the medical student and made modifications to such information, when appropriate. I personally performed a physical exam, medical decision making and then discussed any differences between the notes and made revisions as necessary to create one note. Gui Sanchez , 10/27/22 , 15:26 FARIBA WILDER Oct 27, 2022 09:59 GUI SANCHEZ DO Oct 27, 2022 15:26
[2022-10-27 11:04] VITALS: BP 173/91
[2022-10-27 11:17] VITALS: BP 170/90
[2022-10-27 15:14] VITALS: BP 129/81
[2022-10-27] MEDS ORDERED: ONDA4TAB11 SL ×4 (15:16→15:23)
--- NOTE | 2022-10-27 15:20 | Discharge Inst-Surgical ---
Discharge Inst-Surgical Depart Medication/Instructions New, Converted or Re-Newed RX: Transmitted to Pharmacy Patient Instructions Follow up Appt: Make appointment for 1 week. [phone] Instructions: No lifting greater than 20 pounds. No strenuous activity. May shower in 24 hours, no tub bath or soaking. Use incentive spirometer at home as directed. No Smoking Skin/Wound Care: May remove bandages in am. You need to leave the Dermabond on incision it will fall off on it's own. Symptoms to Report: Appetite Changes, Extremity Discoloration, Numbness/Tingling, Swelling Increased, Bleeding Excessive, Eyesight Changes, Pain Increased, Urine Color Change, Constipation(Persistent), Fever over 101 degree F, Pain/Pressure in chest, Urinating Difficulty, Cough Up/Vomit Blood, Heart Beat Irreg/Pounding, Pain/Pressure in jaw, Cramps in feet or legs, Lightheadedness, Pain/Pressure in shoulder, Diarrhea(Persistent), Memory Changes Suddenly, Questions/Concerns, Weight gain consecutive days, Dizziness/Fainting, Nausea/Vomiting, Shortness of Breath, Weight gain over 2 pounds If questions or concerns contact your physician Or seek help at emergency department. Activity Activity as Tolerated: Yes Activity Instructions: Avoid Stress to Incision Driving Instructions: No Driving/Refer to Dr. Shah Discharge Diet: No Restrictions Diet After 24 Hours: Clear Liquid if Nauseous If Any Problems/Questions/Issu: Contact Your Physician, Go to Emergency Room Skin/Wound Care Infection Signs and Symptoms: Increased Redness, Foul Odor of Wound, Increased Drainage, Skin Itchy or Has a Rash, Increased Swelling, Temperature Above 101 F Bathing Instructions: Shower Stitches/[place]/Dermabond Dis: Care of KYA Hernández DO Oct 27, 2022 15:20
[2022-10-27] MEDS ORDERED: HYDR-3820 PO ×2 (15:22)
[2022-10-27 15:50] VITALS: BP 129/81
== END 2022-10-27 15:50 | disposition home or self-care (01) | DRG 330 ==
LOC: 4TH 08:22 → SURG 08:23 → 4TH 15:15
PROVIDERS: ADMIT Surgery; ATTEND Surgery
PROC: 0DB80ZZ Excision of Small Intestine, Open Approach (ICD-10-PCS; 2022-10-24)
PROC: 0DTJ0ZZ Resection of Appendix, Open Approach (ICD-10-PCS; 2022-10-24)
PROC: 0DTU0ZZ Resection of Omentum, Open Approach (ICD-10-PCS; 2022-10-24)
PROC: 0DTN0ZZ Resection of Sigmoid Colon, Open Approach (ICD-10-PCS; principal; 2022-10-24 11:08)
DX: C18.7 Malignant neoplasm of sigmoid colon (principal); C78.6 Secondary malignant neoplasm of retroperitoneum and peritoneum
CPT/HCPCS: 87081; 94760

== ENCOUNTER 2022-10-28 19:47 | Emergency (ER) | payer BC ==
[~2022-10-28] VITALS: Ht 173 cm; Wt 99.7 kg
[~2022-10-28 19:47] MED LIST changes: +ONDA4TAB11 SL
--- NOTE | 2022-10-28 20:07 | ED General ---
General Stated Complaint: VOMITING, FEVERISH, NOSE BLEEDING, HOT/COLD FLASH History of Present Illness Date Seen by Provider: Oct 28, 2022 Time Seen by Provider: 20:07 Initial Comments Patient is a 51-year-old male who presents to the emergency room with a chief complaint of increased abdominal pain, nausea vomiting, dry heaves, cough onset approximately 1 hour prior to arrival. Patient was recently in the hospital last week with partial small bowel resection, appendectomy findings concerning for cancer. He was released from the hospital yesterday. He states he has been having normal bowel movements and urination. He states he ate well today. He states symptoms started suddenly an hour ago. He became profusely diaphoretic and had sudden onset of pain. He states he feels like his abdomen is being ripped open. He denies chest pain or shortness of breath. He is coughing up "phlegm". No black or bloody stools. No problems with urination currently. Takes no daily medications. Has not really been having to use pain medicine. Pain is much more severe currently than it was yesterday when he was discharged. His operation was October 24. Timing/Duration: 1 Hour Severity: Severe Associated Systoms: Cough, Diaphoresis, Fever/Chills (Subjective fever), Nausea/Vomiting, Weakness Allergies and Home Medications Allergies Coded Allergies: No Known Drug Allergies (Unverified , 04/06/16) Patient Home Medication List Home Medication List Reviewed: Yes Hydrocodone/Acetaminophen (Hydrocodone-Acetamin 10-325 mg) 10 Mg-325 Mg Tablet, 1 EACH PO Q8H Prescribed by: KYA GOMEZ on 10/27/22 152 Ondansetron (Ondansetron Odt) 4 Mg Tab.rapdis, 4 MG SL Q4H PRN for NAUSEA/VOMITING Prescribed by: KYA GOMEZ on 10/27/22 152 Prednisone (Prednisone) 20 Mg Tab, 40 MG PO DAILY Prescribed by: NAVARRO WHEATLEY on 04/06/162117 Discontinued Medications Metronidazole (Metronidazole) 250 Mg Tablet, 250 MG PO, (Reported) Discontinued Reason: No Longer Taking Entered as Reported by: Shameka Marshall on 10/21/22 0905 Neomycin Sulfate (Neomycin Sulfate) 500 Mg Tablet, 500 MG PO, (Reported) Discontinued Reason: No Longer Taking Entered as Reported by: Shameka Marshall on 10/21/22 0905 Review of Systems Review of Systems Constitutional: see HPI, fever EENTM: no symptoms reported Respiratory: cough Cardiovascular: no symptoms reported Gastrointestinal: abdominal pain, nausea, vomiting Genitourinary: no symptoms reported Musculoskeletal: no symptoms reported Skin: other (Diaphoresis) Past Oklzezb-Ararji-Emywvb Hx Immunizations Up To Date Tetanus Booster (TDap): Unknown First/Initial COVID19 Vaccinat: YES Second COVID19 Vaccination Bautista: YES Third COVID19 Vaccination Date: YES Seasonal Allergies Seasonal Allergies: No Past Medical History Surgery/Hospitalization HX: RA Surgeries: Yes (back sx, R RCR) Orthopedic Respiratory: No Cardiac: No Neurological: No Reproductive Disorders: No Genitourinary: No Gastrointestinal: No Musculoskeletal: Yes (BACK) Degenerate Disk Disease, Arthritis Endocrine: No HEENT: No Cancer: Yes Small Bowel Psychosocial: No Integumentary: No Blood Disorders: No Adverse Reaction/Blood Tranf: No Family Medical History Cancer Physical Exam Vital Signs Vital Signs - First Documented 10/28/22 20:00 Pulse 101 Resp 20 B/P (MAP) 174/106 (128) Pulse Ox 93 O2 Delivery Room Air Capillary Refill : Height, Weight, BMI Height: 5'9" Weight: 180lbs. oz. [id number]; 40.67 BMI Method:Stated General Appearance: Mild Distress, Obese Eyes: Bilateral Eye Normal Inspection HEENT: PERRL/EOMI Respiratory: Lungs Clear, Normal Breath Sounds, No Accessory Muscle Use, No Respiratory Distress Cardiovascular: Regular Rate, Rhythm, Tachycardia (91-96) Gastrointestinal: Abnormal Bowel Sounds (Hypoactive), Distended, Tenderness (Significant diffuse abdominal tenderness, abdomen is soft), Other (Surgical wounds appear to be healing well no erythema to the abdominal wall) Extremity: Normal Inspection, Normal Range of Motion, Non Tender, No Calf Tenderness, No Pedal Edema Neurologic/Psychiatric: Alert, Oriented x3, No Motor/Sensory Deficits, Normal Mood/Affect Skin: Normal Color, Warm/Dry Progress/Results/Core Measures Suspected Sepsis SIRS Temperature: Pulse: Respiratory Rate: Laboratory Tests 10/28/22 20:19: White Blood Count 9.1 Blood Pressure / Mean: Laboratory Tests 10/28/22 20:19: Creatinine 0.85, Platelet Count 377, Total Bilirubin 0.5 Results/Orders Lab Results Laboratory Tests Test 10/28/22 20:19 Range/Units White Blood Count 9.1 4.3-11.0 10^3/uL Red Blood Count 4.32 4.30-5.52 10^6/uL Hemoglobin 11.3 L 13.3-17.7 g/dL Hematocrit 37 L 40-54 % Mean Corpuscular Volume 86 80-99 fL Mean Corpuscular Hemoglobin 26 25-34 pg Mean Corpuscular Hemoglobin Concent 31 L 32-36 g/dL Red Cell Distribution Width 14.9 H 10.0-14.5 % Platelet Count 377 130-400 10^3/uL Mean Platelet Volume 9.5 9.0-12.2 fL Immature Granulocyte % (Auto) 1 % Neutrophils (%) (Auto) 76 H 42-75 % Lymphocytes (%) (Auto) 14 12-44 % Monocytes (%) (Auto) 6 0-12 % Eosinophils (%) (Auto) 2 0-10 % Basophils (%) (Auto) 0 0-10 % Neutrophils # (Auto) 7.0 1.8-7.8 10^3/uL Lymphocytes # (Auto) 1.3 1.0-4.0 10^3/uL Monocytes # (Auto) 0.6 0.0-1.0 10^3/uL Eosinophils # (Auto) 0.2 0.0-0.3 10^3/uL Basophils # (Auto) 0.0 0.0-0.1 10^3/uL Immature Granulocyte # (Auto) 0.1 0.0-0.1 10^3/uL Sodium Level 139 135-145 MMOL/L Potassium Level 3.7 3.6-5.0 MMOL/L Chloride Level 103 98-107 MMOL/L Carbon Dioxide Level 27 21-32 MMOL/L Anion Gap 9 5-14 MMOL/L Blood Urea Nitrogen 6 L 7-18 MG/DL Creatinine 0.85 0.60-1.30 MG/DL Estimat Glomerular Filtration Rate 107 BUN/Creatinine Ratio 7 Glucose Level 126 H 70-105 MG/DL Calcium Level 9.1 8.5-10.1 MG/DL Corrected Calcium 9.6 8.5-10.1 MG/DL Total Bilirubin 0.5 0.1-1.0 MG/DL Aspartate Amino Transf (AST/SGOT) 28 5-34 U/L Alanine Aminotransferase (ALT/SGPT) 24 0-55 U/L Alkaline Phosphatase 106 40-136 U/L Total Protein 6.9 6.4-8.2 GM/DL Albumin 3.4 3.2-4.5 GM/DL Lipase < 4 L 8-78 U/L My Orders Orders - MARIE RIZO MD Ed Iv/Invasive Line Start (10/28/22 20:15) Cbc With Automated Diff (10/28/22 20:15) Comprehensive Metabolic Panel (10/28/22 20:15) Ns Iv 1000 Ml (Ns Iv 1000 Ml) (10/28/22 20:15) Fentanyl Injection (Fentanyl Injection (10/28/22 20:15) Ondansetron Injection (Ondansetron Inj (10/28/22 20:15) Lipase (10/28/22 20:19) Ct Abdomen/Pelvis W (10/28/22 20:55) Iohexol Injection (Omnipaque 350 Mg/Ml 1 (10/28/22 21:30) Ns (Ivpb) 100 Ml (Sodium Chloride 0.9% 1 (10/28/22 21:30) Promethazine Injection (Promethazine I (10/28/22 22:00) Medications Given in ED Current Medications Medications Dose Ordered Sig/Jefry Route Start Time Stop Time Status Last Admin Dose Admin Fentanyl Citrate 50 mcg ONCE ONCE IVP 10/28/22 20:15 10/28/22 20:16 DC 10/28/22 20:25 50 MCG Iohexol 100 ml ONCE ONCE IV 10/28/22 21:30 10/28/22 21:31 DC 10/28/22 21:30 100 ML Ondansetron HCl 8 mg ONCE ONCE IVP 10/28/22 20:15 10/28/22 20:16 DC 10/28/22 20:22 8 MG Sodium Chloride 100 ml ONCE ONCE IV 10/28/22 21:30 10/28/22 21:31 DC 10/28/22 21:30 80 ML Vital Signs/I&O 10/28/22 10/28/22 20:00 22:41 Pulse 101 78 Resp 20 22 B/P (MAP) 174/106 (128) 142/78 Pulse Ox 93 96 O2 Delivery Room Air Room Air Capillary Refill : Progress Note #1: Time: 21:50 Progress Note Patient seen and evaluated by me. Evaluation today includes physical exam, CBC, chemistry, CT abdomen and pelvis with IV contrast. Pertinent physical exam findings well-developed well-nourished obese male slightly pale in moderate distress due to nausea and vomiting. VSS. Patient has clear lungs, regular heartbeat, tachycardic. Abdominal exam shows morbidly obese individual with hypoactive bowel sounds significantly tender to palpation diffusely over the abdomen. His abdomen is soft without involuntary guarding or rebound tenderness. Surgical sites are healing well, no erythema or drainage. Differential diagnosis includes small bowel obstruction, enteritis, postoperative infection Labs independently reviewed and interpreted by me. His CBC is normal, Chem-[address] abdomen and pelvis with IV contrast read by radiologist shows no concerning findings for intra abdominal abscess. He does have some residual fluid in the area of his anastomosis. He has findings suggestive of ileus, the radiologist specifically says consideration for early small bowel obstruction. Patient is treated with 50 mcg of fentanyl, 8 mg of Zofran. He had almost complete relief of symptoms. He continued to have some mild to moderate nausea so 25 mg of Phenergan was provided. This greatly improved his symptoms. Case discussed with Dr Gomez who advised clear liquids and follow up with him in the office. Progress Note #2: Time: 22:28 Progress Note Patient received nausea medications, resting comfortably. Advised him of Dr Gomez's instructions to return to a clear liquid diet. Gave him strict return precautions. He verbalized understanding and is agreeable with the plan of care. All questions are sought and answered. Diagnostic Imaging Diagonstic Imaging: CT Comments [facility], [place] NAME: [facility] REC#: [id number] PT STATUS: REG ER : 1970 PHYSICIAN: MARIE RIZO MD ADMIT DATE: 10/28/22/ER Signed Date of Exam:10/28/22 CT ABDOMEN/PELVIS W EXAMINATION: CT abdomen and pelvis with intravenous contrast. TECHNIQUE: Multiple contiguous axial images were obtained through the abdomen and pelvis after the uneventful administration of intravenous contrast. All CT scans use one or more of the following dose optimizing techniques: automated exposure control, MA and/or KvP adjustment based on patient size and exam type or iterative reconstruction. HISTORY: Severe abdominal pain. History of colon cancer. Bowel surgery 4 days ago. COMPARISON: 10/07/2022. FINDINGS: The heart is unremarkable. Stable atelectasis in the lung bases, right greater than left. Stable masses in the liver, the largest in the dome of the liver centrally. The portal vein is patent. Gallstones are seen within a nondistended gallbladder. The spleen, pancreas, adrenal glands, and kidneys have a normal appearance. Interval postsurgical changes of partial bowel resection in the sigmoid colon are seen. There is a small amount of free fluid in the abdomen and pelvis. No free air. There is mild dilation of fluid and air-filled loops of small bowel in the central abdomen. The stomach is moderately distended with ingested contents. Small fat-containing periumbilical hernia is again noted. No acute osseous abnormalities. There is calcified aortic and iliac atherosclerotic plaque without aneurysm. The urinary bladder is nondistended. Punctate focus of air is seen within the urinary bladder. IMPRESSION: 1. Findings most suggestive of enteritis/ileus, with early small bowel obstruction not completely excluded. A small amount of residual free fluid is seen from the partial bowel resection changes. 2. Moderately distended stomach. Enteric tube placement could be considered. 3. Stable metastatic lesions in the liver. Dictated by: Dictated on workstation # [id number] Dict: 10/28/222132 Trans: 10/28/222143 [facility] [id number] Interpreted by: LINDSAY MASSEY DO Electronically signed by: LINDSAY MASSEY DO 10/28/222143 Departure Communication (Admissions) Discussed with Marianela Ng Clear liquid diet and follow up in clinic Impression Primary Impression: Postoperative generalized abdominal pain Disposition: 01 HOME, SELF-CARE Condition: Improved Departure-Patient Inst. Decision time for Depature: 21:58 Referrals: KYA GOMEZ,LOCAL PHYSICIAN (PCP) Primary Care Physician Patient Instructions: Abdominal Pain, Adult ED Add. Discharge Instructions: You need to return to a clear liquid diet for the next [address] Gomez's office early tomorrow afternoon to check in and let the office know how you are doing. If you develop worsening abdominal pain especially with fever over 100.4 please return to the emergency room for reevaluation. Take your nausea and pain medications as needed/prescribed. Copy Copies To 1: KYA GOMEZ KATHRYN M MD Oct 28, 2022 20:07
[2022-10-28] MEDS ORDERED: fentaNYL INJECTION 100 MCG/2 ML VIAL IVP ONE (20:15)
[2022-10-28] MEDS ORDERED: NS IV 1000 ML 1,000 ML IV STA (20:15)
[2022-10-28] MEDS ORDERED: ONDANSETRON INJECTION 4 MG/2 ML (SDV) IVP ONE (20:15)
[2022-10-28 20:28] LABS: BASOPHILS % (AUTO) 0 % (0-10); EOSINOPHILS # (AUTO) 0.2 10^3/uL (0.0-0.3); EOSINOPHILS % (AUTO) 2 % (0-10); HEMATOCRIT 37 % (40-54); HEMOGLOBIN 11.3 g/dL (13.3-17.7); LYMPHOCYTES # (AUTO) 1.3 10^3/uL (1.0-4.0); LYMPHOCYTES % (AUTO) 14 % (12-44); MEAN CORPUSCULAR HEMOGLOBIN 26 pg (25-34); MEAN CORPUSCULAR HGB CONC 31 g/dL (32-36); MEAN CORPUSCULAR VOLUME 86 fL (80-99); MEAN PLATELET VOLUME 9.5 fL (9.0-12.2); MONOCYTES # (AUTO) 0.6 10^3/uL (0.0-1.0); MONOCYTES % (AUTO) 6 % (0-12); NEUTROPHILS % (AUTO) 76 % (42-75); PLATELET COUNT 377 10^3/uL (130-400); WHITE BLOOD COUNT 9.1 10^3/uL (4.3-11.0)
[2022-10-28 20:54] LABS: ALANINE AMINOTRANSFERASE 24 U/L (0-55); ALBUMIN 3.4 GM/DL (3.2-4.5); ALKALINE PHOSPHATASE 106 U/L (40-136); BILIRUBIN,TOTAL 0.5 MG/DL (0.1-1.0); BUN/CREATININE RATIO 7; CALCIUM 9.1 MG/DL (8.5-10.1); CARBON DIOXIDE 27 MMOL/L (21-32); CHLORIDE 103 MMOL/L (98-107); CREATININE SERUM 0.85 MG/DL (0.60-1.30); GFR ESTIMATED 107; GLUCOSE 126 MG/DL (70-105); LIPASE < 4 U/L (8-78); POTASSIUM 3.7 MMOL/L (3.6-5.0); SODIUM 139 MMOL/L (135-145); TOTAL PROTEIN 6.9 GM/DL (6.4-8.2)
[2022-10-28] MEDS ORDERED: NS 100 ML (IVPB) BAG IV ONE (21:30)
[2022-10-28] MEDS ORDERED: IOHEXOL 350 MG/ML 100 ML (OMNIPAQUE 350) VIAL IV ONE (21:30)
--- NOTE | 2022-10-28 21:43 | Diagnostic Imaging Report ---
EXAMINATION: CT abdomen and pelvis with intravenous contrast. TECHNIQUE: Multiple contiguous axial images were obtained through the abdomen and pelvis after the uneventful administration of intravenous contrast. All CT scans use one or more of the following dose optimizing techniques: automated exposure control, MA and/or KvP adjustment based on patient size and exam type or iterative reconstruction. HISTORY: Severe abdominal pain. History of colon cancer. Bowel surgery 4 days ago. COMPARISON: 10/07/2022. FINDINGS: The heart is unremarkable. Stable atelectasis in the lung bases, right greater than left. Stable masses in the liver, the largest in the dome of the liver centrally. The portal vein is patent. Gallstones are seen within a nondistended gallbladder. The spleen, pancreas, adrenal glands, and kidneys have a normal appearance. Interval postsurgical changes of partial bowel resection in the sigmoid colon are seen. There is a small amount of free fluid in the abdomen and pelvis. No free air. There is mild dilation of fluid and air-filled loops of small bowel in the central abdomen. The stomach is moderately distended with ingested contents. Small fat-containing periumbilical hernia is again noted. No acute osseous abnormalities. There is calcified aortic and iliac atherosclerotic plaque without aneurysm. The urinary bladder is nondistended. Punctate focus of air is seen within the urinary bladder. IMPRESSION: 1. Findings most suggestive of enteritis/ileus, with early small bowel obstruction not completely excluded. A small amount of residual free fluid is seen from the partial bowel resection changes. 2. Moderately distended stomach. Enteric tube placement could be considered. 3. Stable metastatic lesions in the liver. Dictated by: Dictated on workstation # [id number]
[2022-10-28] MEDS ORDERED: PROMETHAZINE INJ 25 MG/ML VIAL IVP ONE (22:00)
[2022-10-28 22:41] VITALS: BP 142/78
== END 2022-10-28 22:42 | disposition home or self-care (01) ==
LOC: EDUNIT# 19:47 → ER 19:49
DX: R10.84 Generalized abdominal pain (principal); G89.18 Other acute postprocedural pain; R11.2 Nausea with vomiting, unspecified; E66.01 Morbid (severe) obesity due to excess calories; Z68.41 Body mass index [BMI] 40.0-44.9, adult
CPT/HCPCS: 36415; 74177; 80053; 83690; 85025

== ENCOUNTER 2022-11-04 10:03 | Outpatient (RCR) | payer BC ==
[2022-11-04 11:34] LABS: BASOPHILS % (AUTO) 0 % (0-10); EOSINOPHILS # (AUTO) 0.2 10^3/uL (0.0-0.3); EOSINOPHILS % (AUTO) 2 % (0-10); HEMATOCRIT 36 % (40-54); HEMOGLOBIN 11.1 g/dL (13.3-17.7); LYMPHOCYTES # (AUTO) 1.4 10^3/uL (1.0-4.0); LYMPHOCYTES % (AUTO) 18 % (12-44); MEAN CORPUSCULAR HEMOGLOBIN 26 pg (25-34); MEAN CORPUSCULAR HGB CONC 31 g/dL (32-36); MEAN CORPUSCULAR VOLUME 83 fL (80-99); MEAN PLATELET VOLUME 9.9 fL (9.0-12.2); MONOCYTES # (AUTO) 0.8 10^3/uL (0.0-1.0); MONOCYTES % (AUTO) 10 % (0-12); NEUTROPHILS # (AUTO) 5.4 10^3/uL (1.8-7.8); NEUTROPHILS % (AUTO) 69 % (42-75); PLATELET COUNT 404 10^3/uL (130-400); WHITE BLOOD COUNT 7.8 10^3/uL (4.3-11.0)
[2022-11-04 11:52] LABS: ALBUMIN 3.9 GM/DL (3.2-4.5); BILIRUBIN,TOTAL 0.5 MG/DL (0.1-1.0); CALCIUM 9.6 MG/DL (8.5-10.1); CREATININE SERUM 1.31 MG/DL (0.60-1.30); POTASSIUM 3.8 MMOL/L (3.6-5.0); TOTAL PROTEIN 8.1 GM/DL (6.4-8.2)
== END 2022-11-09 | disposition home or self-care (01) ==
LOC: ONC 10:03
PROVIDERS: ATTEND Internal Medicine Hematology & Oncology
DX: C18.7 Malignant neoplasm of sigmoid colon (principal)
CPT/HCPCS: 80053; 82378; 85025; G0463; 36415; 99204

== ENCOUNTER 2022-11-08 05:33 | Outpatient (CLI) | payer BC ==
[~2022-11-08] VITALS: Ht 175.3 cm; Wt 126.5 kg
== END 2022-11-11 10:06 | disposition home or self-care (01) ==
LOC: PREOP 05:33
PROVIDERS: ATTEND Surgery
DX: Z01.818 Encounter for other preprocedural examination (principal)

== ENCOUNTER 2022-11-13 09:31 | Day surgery (SDC) | payer BC ==
[2022-11-13] VITALS (8 sets, daily range): BP systolic 106–134; BP diastolic 55–79
[~2022-11-13] VITALS: Ht 175.3 cm; Wt 126.5 kg
[2022-11-13] MEDS ORDERED: ceFAZolin INJECTION 2,000 MG in NS (IVPB) 50 ML 50 ML IV ONE (09:45)
[2022-11-13] MEDS ORDERED: LACTATED RINGERS 1,000 ML 1,000 ML IV PRN (09:45)
[2022-11-13] MEDS ORDERED: 0.9% SODIUM CHLORIDE PF INJ 20 ML VIAL ONE (10:00)
[2022-11-13] MEDS ORDERED: LIDOCAINE/EPI 1%-1:200,000 (XYLOCAINE) 30 ML VIAL ONE (10:00)
[2022-11-13] MEDS ORDERED: HEParin (CENTRAL IV FLUSH) 500 UNIT/5 ML SYR ONE (10:00)
[2022-11-13] MEDS ORDERED: HEParin (CENTRAL IV FLUSH) 500 UNIT/5 ML SYR IV ONE (10:04)
[2022-11-13] MEDS ORDERED: 0.9% SODIUM CHLORIDE PF INJ 20 ML VIAL IV ONE (10:05)
[2022-11-13] MEDS ORDERED: LIDOCAINE/EPI 1%-1:200,000 (XYLOCAINE) 30 ML VIAL INJ ONE (10:05)
--- NOTE | 2022-11-13 10:37 | Progress Note-Pre Operative ---
Pre-Operative Progress Note Date of Available H&P: Nov 07, 2022 Date H&P Reviewed: Nov 13, 2022 Time H&P Reviewed: 10:35 History & Physical: H&P Reviewed, Patient Examed, No changes noted Pre-Operative Diagnosis: Venous Insufficiency, Colon CA KYA GOMEZ DO Nov 13, 2022 10:37
[2022-11-13] MEDS ORDERED: MIDAZOLAM INJ 2 MG/2 ML VIAL ONE (10:38)
[2022-11-13] MEDS ORDERED: PHENYLEPHRINE 100 MCG/ML 10 ML (ANESTHESIA) SYR ONE (10:57)
[2022-11-13] MEDS ORDERED: proPOfol INJECTION 200 MG/20 ML VIAL IV ONE (11:30)
--- NOTE | 2022-11-13 11:40 | Progress Note-Post Operative ---
Post-Operative Progess Note Surgeon (s)/Economic Research Assistant (s) Surgeon KYA GOMEZ DO Economic Research Assistant: JOSE ELIAS VillalobosII Pre-Operative Diagnosis Venous Insufficiency, Colon CA Post-Operative Diagnosis same Procedure & Operative Findings Date of Procedure 11/13/22 Procedure Performed/Findings Gabriela-Cath Placement PROCEDURE: The patient was taken to the operating suite, was prepped and draped in the sterile fashion. A surgical pause was performed. Local anesthetic was infiltrated at the clavicle and along the tract to the right anterior chest, where more local was placed so the pocket could be created. Using an 18 gauge finder needle with negative inspiration the right subclavian vein was accessed on the first attempt and dark nonpulsatile blood was withdrawn. The wire was inserted and fluoroscopy assured proper placement. The needle was removed and the wire was then secured. A #11 blade scalpel was used to make an incision over the right chest and along guidewire. Cautery was used to dissect down to the pectoral fascia. A pocket was created with blunt dissection. The dilator sheath was then advanced over the wire under fluoroscopy and the dilator and wire were removed. The Groshong catheter was inserted through the sheath and the sheath was then removed. The Groshong wire was removed. The catheter was then tunneled to the right chest pocket. Fluoroscopy was used to cut to length and this was then attached to the port which was then placed within the pocket. The port was then accessed without difficulty. It was then flushed with saline and then heparin. The subcutaneous tissues were then reapproximated using 3-0 Vicryl. Finally the skin was closed with 4-0 undyed monocryl, 3 interrupted sutures. The areas were then washed and dried. Skin Affix was placed over incision. The insertion point of the neck Skin Affix was placed over the incision. The patient tolerated the procedure well without complication and was taken to recovery room in stable condition. Anesthesia Type IV sedation by [employer] Estimated Blood Loss Estimated blood loss (mL): scant Specimens/Packing Specimens Removed none KYA GOMEZ DO Nov 13, 2022 11:40
--- NOTE | 2022-11-13 11:41 | Discharge Inst-Surgical ---
Discharge Inst-Surgical Depart Medication/Instructions New, Converted or Re-Newed RX: Other (use home meds) Patient Instructions Follow up Appt: Make appointment for 1 week. [phone] Instructions: No lifting greater than 20 pounds. No strenuous activity. May shower in 24 hours, no tub bath or soaking. Use incentive spirometer at home as directed. No Smoking Skin/Wound Care: May remove bandages in am. You need to leave the Dermabond on incision it will fall off on it's own. Symptoms to Report: Appetite Changes, Extremity Discoloration, Numbness/Tingling, Swelling Increased, Bleeding Excessive, Eyesight Changes, Pain Increased, Urine Color Change, Constipation(Persistent), Fever over 101 degree F, Pain/Pressure in chest, Urinating Difficulty, Cough Up/Vomit Blood, Heart Beat Irreg/Pounding, Pain/Pressure in jaw, Cramps in feet or legs, Lightheadedness, Pain/Pressure in shoulder, Diarrhea(Persistent), Memory Changes Suddenly, Questions/Concerns, Weight gain consecutive days, Dizziness/Fainting, Nausea/Vomiting, Shortness of Breath, Weight gain over 2 pounds If questions or concerns contact your physician Or seek help at emergency department. Activity Activity as Tolerated: Yes Activity Instructions: Avoid Stress to Incision Driving Instructions: No Driving/Refer to Dr. Shah Discharge Diet: No Restrictions Diet After 24 Hours: Clear Liquid if Nauseous If Any Problems/Questions/Issu: Contact Your Physician, Go to Emergency Room Skin/Wound Care Infection Signs and Symptoms: Increased Redness, Foul Odor of Wound, Increased Drainage, Skin Itchy or Has a Rash, Increased Swelling, Temperature Above 101 F Bathing Instructions: Shower Operative Area Clean and Dry: Keep Incision Clean/Dry KYA GOMEZ DO Nov 13, 2022 11:41
[2022-11-13] MEDS ORDERED: HYDROmorphone INJECTION 2 MG/ML VIAL IV ONE (11:45)
[2022-11-13] MEDS ORDERED: ONDANSETRON INJECTION 4 MG/2 ML (SDV) IVP PRN (11:45)
--- NOTE | 2022-11-13 11:45 | Anesthesia-General Post-Op ---
MAC Patient Condition Mental Status/LOC: Same as Preop Cardiovascular: Satisfactory Nausea/Vomiting: Absent Respiratory: Satisfactory Pain: Controlled Complications: Absent Post Op Complications Complications None Follow Up Care/Instructions Patient Instructions None needed. Anesthesiology Discharge Order Discharge Order Patient is doing well, no complaints, stable vital signs, no apparent adverse anesthesia problems. No complications reported per nursing. MORENO THOMPSON [employer] Nov 13, 2022 11:45
--- NOTE | 2022-11-13 14:29 | Diagnostic Imaging Report ---
Indication: Port-A-Cath placement. Fluoroscopic guidance. Comparison: None Total fluoroscopy time: 5 seconds Total number fluoroscopic images saved: 2 Findings: Intraoperative fluoroscopic guidance was provided during Port-A-Cath placement. Images provided show right subclavian venous approach. Central tip of the catheter is obscured. Evaluation for pneumothorax suboptimal given fluoroscopic modality. Please note, interpreting radiologist was not present during the procedure. Impression: 1. Fluoroscopic guidance provided during Port-A-Cath placement. Dictated by: Dictated on workstation # [id number]
== END 2022-11-13 13:10 | disposition home or self-care (01) ==
LOC: SDC 09:31
PROVIDERS: ATTEND Surgery
DX: C18.7 Malignant neoplasm of sigmoid colon (principal); I87.2 Venous insufficiency (chronic) (peripheral); E66.01 Morbid (severe) obesity due to excess calories; Z68.41 Body mass index [BMI] 40.0-44.9, adult
CPT/HCPCS: 36561; 76000; 87081; C1788

== ENCOUNTER → 2022-11-20 | Outpatient (CLI) | payer BC ==
[~2022-11-20] MED LIST changes: +HOLD METFORMIN - RECEIVED CONTRAST 20 ML VIAL IV SCH; +IOHEXOL 350 MG/ML 100 ML (OMNIPAQUE 350) VIAL IV ONE; +NS 100 ML (IVPB) BAG IV ONE
--- NOTE | 2022-11-20 12:45 | Diagnostic Imaging Report ---
INDICATION: Colon cancer, metastatic workup. TECHNIQUE: Multiple contiguous axial images were obtained through the chest after administration of intravenous contrast. Auto Exposure Controls were utilized during the CT exam to meet ALARA standards for radiation dose reduction. There is no previous chest CT for comparison. There are a few minimal nodes in the mediastinum which are nonpathologic size, the largest measured about 8 mm in short axis diameter. There are no enlarged hilar nodes. There is no enlarged axillary nodes. Port-A-Cath is seen over the right chest with catheter tip in the SVC. There is elevation of the right hemidiaphragm. There is no pleural or pericardial fluid. Lung windows demonstrate some passive atelectasis in the right lung base due to elevated right hemidiaphragm. There is no significant pulmonary nodule or consolidation. Visualized portions of the upper abdomen demonstrate multiple liver lesions, as described on CT abdomen pelvis of 10/28/2022. There are numerous incidental gallstones. IMPRESSION: CT chest shows no definite metastatic disease. There are some minimal nodes in the mediastinum which are nonpathologic size. There is prominent elevation of the right hemidiaphragm with some passive atelectasis in the right base. There is no pleural fluid or significant pulmonary parenchymal mass. There are metastatic lesions in the liver, similar to the abdominal CT 10/28/2022. Dictated by: Dictated on workstation # [id number]
== END ==
LOC: RAD 12:15
PROVIDERS: ATTEND Internal Medicine Hematology & Oncology
DX: C18.9 Malignant neoplasm of colon, unspecified (principal); C78.7 Secondary malignant neoplasm of liver and intrahepatic bile duct; Q79.1 Other congenital malformations of diaphragm; J98.11 Atelectasis
CPT/HCPCS: 71260; G0463; 99214

== ENCOUNTER → 2022-12-10 | Outpatient (RCR) | payer BC ==
[2022-11-26 09:31] LABS: BASOPHILS % (AUTO) 0 % (0-10); EOSINOPHILS # (AUTO) 0.2 10^3/uL (0.0-0.3); EOSINOPHILS % (AUTO) 2 % (0-10); HEMATOCRIT 35 % (40-54); HEMOGLOBIN 10.7 g/dL (13.3-17.7); LYMPHOCYTES # (AUTO) 1.3 10^3/uL (1.0-4.0); LYMPHOCYTES % (AUTO) 14 % (12-44); MEAN CORPUSCULAR HEMOGLOBIN 26 pg (25-34); MEAN CORPUSCULAR HGB CONC 31 g/dL (32-36); MEAN CORPUSCULAR VOLUME 83 fL (80-99); MEAN PLATELET VOLUME 9.8 fL (9.0-12.2); MONOCYTES % (AUTO) 11 % (0-12); NEUTROPHILS # (AUTO) 6.5 10^3/uL (1.8-7.8); NEUTROPHILS % (AUTO) 72 % (42-75); PLATELET COUNT 306 10^3/uL (130-400)
[2022-11-26 09:47] VITALS: BP 116/81
[2022-11-26 09:50] LABS: ALBUMIN 3.7 GM/DL (3.2-4.5); CALCIUM 8.7 MG/DL (8.5-10.1); CREATININE SERUM 0.78 MG/DL (0.60-1.30); TOTAL PROTEIN 7.3 GM/DL (6.4-8.2)
[2022-11-26] MEDS: FOSAPREPITANT (CANCER CENTER) 150 MG in NS (IVPB) CANCER CENTER ONLY 150 ML IV SCH (10:01)
[2022-11-26] MEDS: D5W 500 ML IV SOLUTION 500 ML IV SCH (10:01)
[2022-11-26] MEDS: ONDANSETRON IV SCH (10:28)
[2022-11-26] MEDS: DEXAMETHASONE SODIUM PHOSPHATE IV SCH (10:28)
[2022-11-26] MEDS: [UNRECOGNIZED DRUG - OTHER] IV SCH (10:28)
[2022-11-26] MEDS: LEUCOVORIN CALCIUM IV SCH (12:30)
[2022-11-26] MEDS: D5W IV SCH ×2 (12:30)
[2022-11-26] MEDS: OXALIPLATIN IV SCH (12:30)
[2022-11-26] MEDS: NS IV SCH (14:38)
[2022-11-26] MEDS: FLUOROURACIL IV SCH (14:38)
[2022-12-03 10:26] LABS: BASOPHILS % (AUTO) 0 % (0-10); EOSINOPHILS # (AUTO) 0.2 10^3/uL (0.0-0.3); EOSINOPHILS % (AUTO) 4 % (0-10); HEMATOCRIT 38 % (40-54); HEMOGLOBIN 11.9 g/dL (13.3-17.7); LYMPHOCYTES # (AUTO) 1.5 10^3/uL (1.0-4.0); LYMPHOCYTES % (AUTO) 27 % (12-44); MEAN CORPUSCULAR HEMOGLOBIN 25 pg (25-34); MEAN CORPUSCULAR HGB CONC 32 g/dL (32-36); MEAN CORPUSCULAR VOLUME 80 fL (80-99); MEAN PLATELET VOLUME 10.2 fL (9.0-12.2); MONOCYTES # (AUTO) 0.2 10^3/uL (0.0-1.0); MONOCYTES % (AUTO) 4 % (0-12); NEUTROPHILS # (AUTO) 3.4 10^3/uL (1.8-7.8); NEUTROPHILS % (AUTO) 63 % (42-75); PLATELET COUNT 281 10^3/uL (130-400); WHITE BLOOD COUNT 5.4 10^3/uL (4.3-11.0)
[~2022-12-10] VITALS: Ht 175.3 cm; Wt 130.7 kg
[~2022-12-10] MED LIST changes: +D5W IV SCH; +HEParin (CENTRAL IV FLUSH) 500 UNIT/5 ML SYR IV PRN; -HOLD METFORMIN - RECEIVED CONTRAST 20 ML VIAL IV SCH; -IOHEXOL 350 MG/ML 100 ML (OMNIPAQUE 350) VIAL IV ONE; +IRINOTECAN HCL IV SCH; -NS 100 ML (IVPB) BAG IV ONE
[2022-12-10 10:30] VITALS: BP 164/93
[2022-12-10 11:12] LABS: BASOPHILS % (AUTO) 1 % (0-10); EOSINOPHILS # (AUTO) 0.1 10^3/uL (0.0-0.3); EOSINOPHILS % (AUTO) 3 % (0-10); HEMATOCRIT 34 % (40-54); HEMOGLOBIN 10.3 g/dL (13.3-17.7); LYMPHOCYTES # (AUTO) 1.8 10^3/uL (1.0-4.0); LYMPHOCYTES % (AUTO) 41 % (12-44); MEAN CORPUSCULAR HEMOGLOBIN 25 pg (25-34); MEAN CORPUSCULAR HGB CONC 31 g/dL (32-36); MEAN CORPUSCULAR VOLUME 82 fL (80-99); MEAN PLATELET VOLUME 9.7 fL (9.0-12.2); MONOCYTES # (AUTO) 0.5 10^3/uL (0.0-1.0); MONOCYTES % (AUTO) 10 % (0-12); NEUTROPHILS % (AUTO) 45 % (42-75); PLATELET COUNT 211 10^3/uL (130-400); WHITE BLOOD COUNT 4.4 10^3/uL (4.3-11.0)
[2022-12-10] MEDS: FOSAPREPITANT (CANCER CENTER) 150 MG in NS (IVPB) CANCER CENTER ONLY 150 ML IV SCH (11:31)
[2022-12-10] MEDS: D5W 500 ML IV SOLUTION 500 ML IV SCH (11:31)
[2022-12-10 11:33] LABS: ALBUMIN 3.4 GM/DL (3.2-4.5); BILIRUBIN,TOTAL 0.2 MG/DL (0.1-1.0); CALCIUM 8.4 MG/DL (8.5-10.1); CREATININE SERUM 0.78 MG/DL (0.60-1.30); MAGNESIUM 1.5 MG/DL (1.6-2.4); POTASSIUM 3.7 MMOL/L (3.6-5.0)
[2022-12-10] MEDS: DEXAMETHASONE SODIUM PHOSPHATE IV SCH (11:56)
[2022-12-10] MEDS: [UNRECOGNIZED DRUG - OTHER] IV SCH (11:56)
[2022-12-10] MEDS: ONDANSETRON IV SCH (11:56)
[2022-12-10] MEDS: D5W IV SCH ×2 (13:21)
[2022-12-10] MEDS: OXALIPLATIN IV SCH (13:21)
[2022-12-10] MEDS: LEUCOVORIN CALCIUM IV SCH (13:21)
[2022-12-10] MEDS: NS IV SCH (15:31)
[2022-12-10] MEDS: FLUOROURACIL IV SCH (15:31)
== END | disposition home or self-care (01) ==
LOC: ONC 11-20 10:42
PROVIDERS: ATTEND Internal Medicine Hematology & Oncology
DX: Z51.11 Encounter for antineoplastic chemotherapy (principal); C18.7 Malignant neoplasm of sigmoid colon
CPT/HCPCS: 36415; 36591; 80053; 83735; 84443; 85025; 96367; 96368; 96375; 96413; 96415; 96416; 96417

== ENCOUNTER → 2022-12-16 | Outpatient (CLI) | payer BC ==
[~2022-12-16] MED LIST changes: -D5W IV SCH; -HEParin (CENTRAL IV FLUSH) 500 UNIT/5 ML SYR IV PRN; -IRINOTECAN HCL IV SCH
--- NOTE | 2022-12-16 14:29 | Diagnostic Imaging Report ---
EXAMINATION: Chest, 2 views. HISTORY: Chest pain. COMPARISON: None available. FINDINGS: Right hemidiaphragm is elevated. There is overlying atelectasis. A right-sided port catheter is present. No edema or pneumonia. No pneumothorax. No pleural effusion. IMPRESSION: Elevated right hemidiaphragm with overlying atelectasis. Dictated by: Dictated on workstation # [id number]
== END ==
LOC: RAD 14:12
PROVIDERS: ATTEND Internal Medicine Hematology & Oncology
DX: J98.11 Atelectasis (principal); J98.6 Disorders of diaphragm
CPT/HCPCS: 71046

== ENCOUNTER → 2023-01-09 | Outpatient (RCR) | payer BC ==
[2022-12-17 11:20] LABS: BASOPHILS % (AUTO) 0 % (0-10); EOSINOPHILS # (AUTO) 0.4 10^3/uL (0.0-0.3); EOSINOPHILS % (AUTO) 7 % (0-10); HEMATOCRIT 37 % (40-54); HEMOGLOBIN 11.6 g/dL (13.3-17.7); LYMPHOCYTES # (AUTO) 1.5 10^3/uL (1.0-4.0); LYMPHOCYTES % (AUTO) 29 % (12-44); MEAN CORPUSCULAR HEMOGLOBIN 25 pg (25-34); MEAN CORPUSCULAR HGB CONC 32 g/dL (32-36); MEAN CORPUSCULAR VOLUME 80 fL (80-99); MONOCYTES # (AUTO) 0.3 10^3/uL (0.0-1.0); MONOCYTES % (AUTO) 6 % (0-12); NEUTROPHILS % (AUTO) 57 % (42-75); PLATELET COUNT 216 10^3/uL (130-400); WHITE BLOOD COUNT 5.2 10^3/uL (4.3-11.0)
[2022-12-24 10:15] VITALS: BP 154/102
[2022-12-24 10:28] LABS: BASOPHILS % (AUTO) 1 % (0-10); EOSINOPHILS # (AUTO) 0.1 10^3/uL (0.0-0.3); EOSINOPHILS % (AUTO) 1 % (0-10); HEMATOCRIT 37 % (40-54); HEMOGLOBIN 11.1 g/dL (13.3-17.7); LYMPHOCYTES % (AUTO) 34 % (12-44); MEAN CORPUSCULAR HEMOGLOBIN 25 pg (25-34); MEAN CORPUSCULAR HGB CONC 30 g/dL (32-36); MEAN CORPUSCULAR VOLUME 82 fL (80-99); MEAN PLATELET VOLUME 9.8 fL (9.0-12.2); MONOCYTES # (AUTO) 0.8 10^3/uL (0.0-1.0); MONOCYTES % (AUTO) 13 % (0-12); NEUTROPHILS % (AUTO) 51 % (42-75); PLATELET COUNT 219 10^3/uL (130-400); WHITE BLOOD COUNT 5.9 10^3/uL (4.3-11.0)
[2022-12-24] MEDS: D5W 500 ML IV SOLUTION 500 ML IV SCH (10:45)
[2022-12-24] MEDS: FOSAPREPITANT (CANCER CENTER) 150 MG in NS (IVPB) CANCER CENTER ONLY 150 ML IV SCH (10:45)
[2022-12-24 10:53] LABS: ALBUMIN 3.7 GM/DL (3.2-4.5); BILIRUBIN,TOTAL 0.2 MG/DL (0.1-1.0); CALCIUM 9.1 MG/DL (8.5-10.1); CREATININE SERUM 0.84 MG/DL (0.60-1.30); MAGNESIUM 1.7 MG/DL (1.6-2.4); POTASSIUM 4.1 MMOL/L (3.6-5.0); TOTAL PROTEIN 6.7 GM/DL (6.4-8.2)
[2022-12-24] MEDS: DEXAMETHASONE SODIUM PHOSPHATE IV SCH (11:10)
[2022-12-24] MEDS: ONDANSETRON IV SCH (11:10)
[2022-12-24] MEDS: [UNRECOGNIZED DRUG - OTHER] IV SCH (11:10)
[2022-12-24] MEDS: D5W IV SCH ×3 (11:30→12:38)
[2022-12-24] MEDS: IRINOTECAN HCL IV SCH (11:30)
[2022-12-24] MEDS: OXALIPLATIN IV SCH (12:37)
[2022-12-24] MEDS: LEUCOVORIN CALCIUM IV SCH (12:38)
[2022-12-24] MEDS: FLUOROURACIL IV SCH (14:54)
[2022-12-24] MEDS: NS IV SCH (14:54)
[2022-12-31 11:02] LABS: BASOPHILS % (AUTO) 0 % (0-10); EOSINOPHILS # (AUTO) 0.4 10^3/uL (0.0-0.3); EOSINOPHILS % (AUTO) 6 % (0-10); HEMATOCRIT 39 % (40-54); HEMOGLOBIN 12.1 g/dL (13.3-17.7); LYMPHOCYTES # (AUTO) 1.7 10^3/uL (1.0-4.0); LYMPHOCYTES % (AUTO) 25 % (12-44); MEAN CORPUSCULAR HEMOGLOBIN 25 pg (25-34); MEAN CORPUSCULAR HGB CONC 31 g/dL (32-36); MEAN CORPUSCULAR VOLUME 81 fL (80-99); MEAN PLATELET VOLUME 10.5 fL (9.0-12.2); MONOCYTES # (AUTO) 0.3 10^3/uL (0.0-1.0); MONOCYTES % (AUTO) 5 % (0-12); NEUTROPHILS # (AUTO) 4.4 10^3/uL (1.8-7.8); NEUTROPHILS % (AUTO) 64 % (42-75); PLATELET COUNT 220 10^3/uL (130-400); WHITE BLOOD COUNT 6.9 10^3/uL (4.3-11.0)
[2023-01-07 10:12] LABS: BASOPHILS % (AUTO) 0 % (0-10); EOSINOPHILS % (AUTO) 0 % (0-10); HEMATOCRIT 39 % (40-54); HEMOGLOBIN 11.9 g/dL (13.3-17.7); LYMPHOCYTES # (AUTO) 0.5 10^3/uL (1.0-4.0); LYMPHOCYTES % (AUTO) 11 % (12-44); MEAN CORPUSCULAR HEMOGLOBIN 25 pg (25-34); MEAN CORPUSCULAR HGB CONC 31 g/dL (32-36); MEAN CORPUSCULAR VOLUME 81 fL (80-99); MEAN PLATELET VOLUME 9.9 fL (9.0-12.2); MONOCYTES # (AUTO) 0.2 10^3/uL (0.0-1.0); MONOCYTES % (AUTO) 4 % (0-12); NEUTROPHILS # (AUTO) 4.4 10^3/uL (1.8-7.8); NEUTROPHILS % (AUTO) 85 % (42-75); PLATELET COUNT 215 10^3/uL (130-400); WHITE BLOOD COUNT 5.2 10^3/uL (4.3-11.0)
[2023-01-07 10:16] VITALS: BP 112/80
[2023-01-07 10:37] LABS: ALBUMIN 3.9 GM/DL (3.2-4.5); BILIRUBIN,TOTAL 0.3 MG/DL (0.1-1.0); CALCIUM 9.2 MG/DL (8.5-10.1); CREATININE SERUM 0.82 MG/DL (0.60-1.30); MAGNESIUM 1.6 MG/DL (1.6-2.4); POTASSIUM 4.3 MMOL/L (3.6-5.0); TOTAL PROTEIN 6.9 GM/DL (6.4-8.2)
[2023-01-07] MEDS: [UNRECOGNIZED DRUG - OTHER] IV SCH (10:50)
[2023-01-07] MEDS: D5W 500 ML IV SOLUTION 500 ML IV SCH (10:50)
[2023-01-07] MEDS: DEXAMETHASONE SODIUM PHOSPHATE IV SCH (10:50)
[2023-01-07] MEDS: ONDANSETRON IV SCH (10:50)
[2023-01-07] MEDS: FOSAPREPITANT (CANCER CENTER) 150 MG in NS (IVPB) CANCER CENTER ONLY 150 ML IV SCH (11:11)
[2023-01-07] MEDS: D5W IV SCH ×3 (11:37→12:46)
[2023-01-07] MEDS: IRINOTECAN HCL IV SCH (11:37)
[2023-01-07] MEDS: LEUCOVORIN CALCIUM IV SCH (12:43)
[2023-01-07] MEDS: OXALIPLATIN IV SCH (12:46)
[2023-01-07] MEDS: NS IV SCH (14:50)
[2023-01-07] MEDS: FLUOROURACIL IV SCH (14:50)
[~2023-01-09] VITALS: Ht 175.3 cm; Wt 127.3 kg
[~2023-01-09] MED LIST changes: +HEParin (CENTRAL IV FLUSH) 500 UNIT/5 ML SYR IV PRN
== END | disposition home or self-care (01) ==
LOC: ONC 12-12 15:19
PROVIDERS: ATTEND Internal Medicine Hematology & Oncology
DX: Z51.11 Encounter for antineoplastic chemotherapy (principal); C18.7 Malignant neoplasm of sigmoid colon
CPT/HCPCS: 36415; 36591; 80053; 82378; 83735; 85025; 96367; 96368; 96375; 96413; 96415; 96417; 99214

== ENCOUNTER → 2023-01-20 | Outpatient (CLI) | payer BC ==
[~2023-01-20] MED LIST changes: +CATHETER FLUSH 10 ML SYR IV PRN; -HEParin (CENTRAL IV FLUSH) 500 UNIT/5 ML SYR IV PRN; +HOLD METFORMIN - RECEIVED CONTRAST 20 ML VIAL IV SCH; +IOHEXOL 350 MG/ML 100 ML (OMNIPAQUE 350) VIAL IV ONE; +NS 100 ML (IVPB) BAG IV ONE
--- NOTE | 2023-01-20 11:26 | Diagnostic Imaging Report ---
PROCEDURE: CT chest, abdomen, and pelvis with contrast. TECHNIQUE: Multiple contiguous axial images were obtained through the chest, abdomen, and pelvis after the administration of intravenous contrast. Auto Exposure Controls were utilized during the CT exam to meet ALARA standards for radiation dose reduction. INDICATION: Colon cancer, metastatic to lungs. COMPARED with chest CT 11/20/[address] 10/28/2022. CHEST: Some right basilar subsegmental atelectasis associated with the chronically elevated right hemidiaphragm is an unchanged finding. No lung mass or suspicious pulmonary nodule. No thoracic lymphadenopathy. No suspicious soft tissue or osseous chest wall pathology. A central line in the SVC stable. No pleural or pericardial effusion. ABDOMEN PELVIS: Multifocal hepatic metastatic disease showed mild interval improvement. The lesion in segment 6 posteriorly is today 19 mm, previously measuring 29 mm. Bilobed mass or adjacent and inseparable masses at the dome of the left hepatic lobe anteriorly today measured 4.6 x 2.1 cm, previously in aggregate 6.2 x 3.7 cm. Additional smaller masses showed similar reduction with no new lesion or adverse development. Cholelithiasis without biliary dilatation stable. There is no adrenal mass. The spleen and pancreas unremarkable. The kidneys are unobstructed. No ileus or bowel obstruction. Previous nonspecific small bowel dilatation has since resolved and there is resolution of prior abdominal pelvic ascites. Sutural anastomotic changes to the pelvic small and large bowel stable without evidence for breakdown or obstruction. The urinary bladder unremarkable. Periumbilical ventral incisional hernia, previously fatty, now contains a short segment of unobstructed small bowel. No acute-appearing abdominal wall pathology. No hemorrhage, abscess or ascites. No lymphadenopathy. IMPRESSION: CHEST: No findings of thoracic metastasis or acute abnormalities. ABDOMEN PELVIS: Improvements in multifocal hepatic metastatic disease. Resolution of ascites. Resolution of small bowel dilatation. No new metastatic deposit suspected. Small incisional hernia redemonstrated, now contains a short segment of unobstructed small bowel without its inflammation. Cholelithiasis. Dictated by: Dictated on workstation # [id number]
== END ==
LOC: RAD 10:00
PROVIDERS: ATTEND Internal Medicine Hematology & Oncology
DX: C18.7 Malignant neoplasm of sigmoid colon (principal)
CPT/HCPCS: 71260; 74177